=== PATIENT | female | born 1955 | race Caucasian/White ===

== ENCOUNTER 2024-09-29 18:50 | Inpatient (IN) | payer OTHER ==
[~2024-09-29] VITALS: Ht 165.1 cm; Wt 103.5 kg
--- NOTE | 2024-09-29 19:12 | ED.PDOC ---
SOB-HPI HPI Comments HPI:69F presents to the ER w/ granddaughter and w/ no prior Hx associated to the c/c of SOB w/ flulike symptoms. Pt reports on having the SOB and flulike symptoms for 1 week, actually calling EMS earlier this week but them stating that she was "fine". Today the pt's granddaughter told the pt to go and lay down and as the pt did she started to have SOB w/ palpitations, w/ the pt stating "my chest is sore". Pt notes that nobody at home is sick today. Past medical history:DM, Gout and Kidney Ranjith Past surgical history: Full Hysterectomy, Gastric Bypass and Cholecystectomy Allergies: Toradol Chief Complaint: Shortness of Breath I personally scribed for GELY BERTRAND DO ([email or web address]) on 09/29/24 at 19:12. Electronically submitted by Arron Spicer ([employer]). I personally scribed for GELY BERTRAND DO ([email or web address]) on 09/29/24 at 19:12. Electronically submitted by Arron Spicer ([email or web address]). GELY BERTRAND DO Sep 29, 2024 19:12
--- NOTE | 2024-09-29 19:17 | ED.PDOC ---
SOB-HPI HPI Comments HPI: Poor Historian. HPI:69F presents to the ER w/ granddaughter for evaluation of shortness of breath and flu-like symptoms. Pt reports on having the SOB and flulike symptoms for 1 week, actually calling EMS earlier this week but EMS stating that she was "fine". Today the pt's granddaughter told the pt to go and lay down and as the pt did she started to have SOB w/ palpitations, w/ the pt stating "my chest is sore". Pt notes that nobody at home is sick today. Past medical history:DM, Gout and Kidney Ranjith Past surgical history: Full Hysterectomy, Gastric Bypass and Cholecystectomy Allergies: Toradol REVIEW OF SYSTEMS: CONSTITUTIONAL: Denies acute: diaphoresis, chills, HEAD: Denies acute: headache, photophobia Eyes: Denies acute: Double vision, vision loss, eye pain, eye discharge. EARS: Denies acute: tinnitus, hearing loss, ear discharge, ear pain, THROAT: Denies acute: sore throat, swelling, difficulty swallowing , pain with swallowing, change in voice. NECK: Denies acute: neck pain, neck swelling, stiff neck. HEART: Denies acute : LUNGS: Denies acute: wheezing, cough, hemoptysis ABDOMEN: Denies acute: abdominal pain, Nausea, Vomiting, diarrhea, melena , hematemesis, hematochezia SKIN: Denies acute: rash, redness, lesions, itchiness. EXTREMITIES: Denies acute: calf pain, numbness, tingling, weakness, denies pain in extremity. Denies acute: Low back pain. Neuro: Denies acute: focal neurological deficit, motor or sensory focal neurological deficit, tremors, seizure like activity, confusion, dizziness, change in mental status, loss of bowel or bladder function, cauda equina like symptoms. : Denies acute: dysuria, hematuria, flank pain, increase in urinary frequency. PSYCH: Denies acute: hallucination, suicidal ideation, homicidal ideation. FEMALE: Denies acute: abnormal vaginal bleeding, foul odor, unusual discharge. PHYSICAL EXAM: General: no acute distress, awake and alert. Head: normocephalic, atraumatic. Neck: supple, trachea is midline, no swelling. Throat: Normal phonation. Eyes:, no erythema, no purulent discharge, no proptosis, no icterus. Heart: regular rate, regular rhythm, no significant murmur appreciated. Lungs: no apparent respiratory distress, Able to speak in full sentences. No wheezing, no rhonchi, no crackles. No stridors Clear to auscultation bilaterally. Abdomen: non tender to palpation, non distended, soft, no guarding, no rebound, + bowel sounds. Obese Neuro: Awake, Alert, oriented to name, self, situation, follows commands GCS=15. Speech is normal. Skin: no petechia, no purpura, no cyanosis, non-pale, not jaundice. Lower extremities: --trace bilateral - Pitting edema no deformity, no focal swelling, no calf TTP. Makes eye contact. moves all four extremities. Face: no apparent facial droop. Ambulating in the ED independently. ED COURSE: Chief Complaint: Shortness of Breath Time Seen by MD: 19:00 Reviewed notes: Nurses Notes, Allergies Information Source: Patient, Relative (GrandChild) Mode of Arrival: Ambulatory Severity: Mild Timing: Days Duration: Since onset, Days Context: Spontaneous Onset PE Risk Factors: None History of: None Prehospital treatment: None Modifying Factors: Rest; Laying flat Associated Signs and Symptoms: Cough, Chest Pain Past Medical History PAST MEDICAL HISTORY: DM, Gout Past Medical History (Other): Kidney Disease Surgical History: Cholecystectomy, Hysterectomy (FULL) Surgical History (Other): Gastric Bypass 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 Was a procedure done?: No Differential Dx Differential Diagnosis: Other (Ddx include but not limitied to gastritis, musculoskeletal pain, radiculopathy, atypical chest pain, dissection, aneurysm, ACS, unstable angina, hiatal hernia, GERD, anxiety, costochondritis, PE, pneumothroax, neoplasm, cardiac ischemia, drug abuse, anemia.) X-Ray, Labs, Meds, VS Vital Signs Date Time Temp Pulse Resp B/P (MAP) Pulse Ox O2 Delivery O2 Flow Rate FiO2 09/29/24 20:21 16 99 Room Air* 0 09/29/24 19:31 20 98 Room Air* 0 09/29/24 19:24 97.4 89 20 129/76 (93) 98 09/29/24 19:18 86 Lab Test 09/29/24 19:56 09/29/24 19:15 09/29/24 19:08 Range/Units Troponin I High Sensitivity < 3 L < 3 L </=34 ng/L Blood Gas Specimen Type Arterial Blood Gas Sample Site Right radial Blood Gas Patient Temperature 37.0 Arterial Blood Date Drawn [id number] Arterial Blood pH 7.457 H 7.350-7.450 Arterial Blood Partial Pressure CO2 29.1 L 32.0-45.0 mmHg Arterial Blood Partial Pressure O2 81.1 L 83.0-108.0 mmHg Arterial Blood HCO3 20.1 L 21.0-28.0 mmol/L Arterial Blood Oxygen Saturation 96.1 94.0-98.0 % Arterial Blood Base Excess -2.4 L -2.0-3.0 mmol/L Arterial Blood Oxyhemoglobin 94.6 94.0-98.0 % Arterial Blood Carboxyhemoglobin 1.3 0.5-1.5 % Arterial Blood Methemoglobin 0.3 0.0-1.5 % Khadar Test Modified Blood Gas Total Hemoglobin 15.00 12.0-16.0 g/dL Blood Gas Modality Room air FiO2 % 21.0 White Blood Count 7.6 4.4-10.8 10^3/uL Red Blood Count 4.48 4.0-5.20 10^6/uL Hemoglobin 14.4 12.2-16.2 g/dL Hematocrit 43.6 36.0-46.0 % Mean Corpuscular Volume 97.4 80.0-100.0 fL Mean Corpuscular Hemoglobin 32.1 H 28.0-32.0 pg Mean Corpuscular Hemoglobin Concent 32.9 32.0-36.0 g/dL Red Cell Distribution Width 14.1 11.8-14.3 % Platelet Count 169 140-450 10^3/uL Mean Platelet Volume 8.8 6.9-10.8 fL Neutrophils (%) (Auto) 67.7 37.0-80.0 % Lymphocytes (%) (Auto) 18.6 10.0-50.0 % Monocytes (%) (Auto) 8.4 0.0-12.0 % Eosinophils (%) (Auto) 4.4 0.0-7.0 % Basophils (%) (Auto) 0.9 0.0-2.0 % Neutrophils # (Auto) 5.1 1.6-8.6 10 ^3/uL Lymphocytes # (Auto) 1.4 0.4-5.4 10 ^3/uL Monocytes # (Auto) 0.6 0-1.3 10 ^3/uL Eosinophils # (Auto) 0.3 0-0.8 10 ^3/uL Basophils # (Auto) 0.1 0-0.2 10 ^3/uL Nucleated Red Blood Cells 0.0 % Sodium Level 140 136-145 mmol/L Potassium Level 4.9 3.5-5.1 mmol/L Chloride Level 107 98-107 mmol/L Carbon Dioxide Level 26 20-31 mmol/L Anion Gap 7 5-15 Blood Urea Nitrogen 32 H 9-23 mg/dL Creatinine 2.27 H 0.550-1.02 mg/dL Glomerular Filtration Rate Calc 23 >90 mL/min BUN/Creatinine Ratio 14.1 10.0-20.0 Serum Glucose 147 H 74-106 mg/dL Hemoglobin A1c Pending Lactic Acid Level 1.5 0.4-2.0 mmol/L Calcium Level 9.8 8.7-10.4 mg/dL Total Bilirubin 0.7 0.2-1.0 mg/dL Aspartate Amino Transferase (AST) 25 13-40 U/L Alanine Aminotransferase (ALT) 17 7-40 U/L Alkaline Phosphatase 109 46-116 U/L B-Type Natriuretic Peptide 113.77 0-100 pg/mL Total Protein 8.2 5.7-8.2 g/dL Albumin 4.3 3.2-4.8 g/dL Current Medications Medications (Trade) Dose Ordered Sig/Coy Route Start Time Stop Time Status Last Admin Albuterol (Ventolin Medneb) 2.5 mg ONCE ONCE NEB 09/29/24 19:45 09/29/24 19:56 DC 09/29/24 20:20 Ipratropium [place] (Atrovent Medneb) 1 mg ONCE ONCE NEB 09/29/24 19:45 09/29/24 19:56 DC 09/29/24 20:21 [facility] [id number] [place] [id number] Ph: [phone] DIAGNOSTIC IMAGING Diagnostic Imaging Report : [id number] Signed PATIENT: FENG FRANK ACCT: [id number] UNIT: [id number] : 1955 LOC: ER ROOM / BED: / AGE / SEX: 69 / F ADM STATUS: REG ER SERVICE 6229 ORDERING PHYSICIAN: GELY BERTRAND DO PROCEDURE(s): CXRP - CHEST PORTABLE REASON: sob ORDER NUMBER(s): [id number], ACCESSION NUMBER(s): [id number] EXAM: XR Chest, 1 View CLINICAL INDICATION: sob TECHNIQUE: Frontal view of the chest. COMPARISON: None FINDINGS: LUNGS AND PLEURAL SPACES: See below. HEART: Cardiomegaly with mild congestion. MEDIASTINUM: Unremarkable. Normal mediastinal contour. BONES/JOINTS: Unremarkable. No acute fracture. OTHER FINDINGS: . IMPRESSION: Cardiomegaly with mild congestion. ATED BY: KATIE REILLY MD DICTATED DATE/TIME: 09/29/241951 SIGNED BY: KATIE REILLY MD SIGNED DATE/TIME: 09/29/241951 CC: Time of 1ST Reevaluation: 19:30 Reevaluation 1ST: Unchanged Patient Education/Counseling: Diagnosis, Treatment Family Education/Counseling: Diagnosis, Treatment Comments Patient presented with the above HPI.---cardiac and respiratory--workup was initiated. patient was found with the above mentioned diagnosis. the following medications were ordered: please refer to order lists of meds and tests obtained by myself Dr. Bertrand. Patient ED course and VS have been stabilized. Patient has been reassessed in the ED and remained in a stable condition. Pertinent incidental findings were discussed with the patient and/or family. Patient/family voices understanding and is agreeable with plan. Patient has been observed in the ED adequate length of time to insure improvement/stability. Escalation of care considered: Consideration of escalation to observation or admission Patient was ADMITTED to the medicine team for further evaluation and treatment of their presentation. All the reports of any imaging studies that were ordered by myself were reviewed by myself. Departure 1 Departure Time of Disposition: 19:59 Impression: Primary Impression: Chest pain Additional Impressions: Dyspnea T wave inversion in EKG Disposition: ADMITTED INPATIENT Admit to: Tele Condition: Guarded Discharged With: Self Heart Score Heart Score: Heart Score Response (Comments) Value History Moderate Suspicious [address]-Deviation 2 Age >65 2 Risk Factors >3 or Hx ASHD 2 Troponin Normal limit 0 Total 7 Critical Care Note Critical Care Time?: No I personally scribed for GELY BERTRAND DO ([email or web address]) on 09/29/24 at 19:17. Electronically submitted by Arron Spicer ([employer]). I personally scribed for GELY BERTRAND DO ([email or web address]) on 09/29/24 at 20:53. Electronically submitted by Arron Spicer ([employer]). GELY BERTRAND DO Sep 29, 2024 19:17
--- NOTE | 2024-09-29 19:19 | ECG ---
[facility] Test Date: 2024-09-29 Test Time: 19:18:00 Pat Name: FENG FRANK Department: ER Room: 0248T Gender: F Sales Representatives: SAVANNA : 1955 Requested By: GELY BERTRAND Order Number: [id number] Reading MD: Angus Patel Measurements Intervals [place] Rate: 86 P: 9 KS: 148 QRS: 25 QRSD: 94 T: 13 QT: 363 QTc: 434 Interpretive Statements Sinus rhythm Borderline T abnormalities, anterior leads Electronically Signed On 10-03-2024 21:53:48 PST by Angus Patel Please click the below link to view image of tracing.
[2024-09-29 19:21] LABS: Base Excess -2.4 mmol/L (-2.0-3.0)
[2024-09-29 19:22] LABS: Basophils # (auto) 0.1 10 ^3/uL (0-0.2); Basophils % (auto) 0.9 % (0.0-2.0); Eosinophils # (auto) 0.3 10 ^3/uL (0-0.8); Eosinophils % (auto) 4.4 % (0.0-7.0); Hematocrit 43.6 % (36.0-46.0); Hemoglobin 14.4 g/dL (12.2-16.2); Lymphocytes # (auto) 1.4 10 ^3/uL (0.4-5.4); Lymphocytes % (auto) 18.6 % (10.0-50.0); Mean Corpuscular Hemoglobin 32.1 pg (28.0-32.0); Mean Corpuscular Hgb Conc. 32.9 g/dL (32.0-36.0); Mean Corpuscular Volume 97.4 fL (80.0-100.0); Monocytes # (auto) 0.6 10 ^3/uL (0-1.3); Monocytes % (auto) 8.4 % (0.0-12.0); Neutrophils # (auto) 5.1 10 ^3/uL (1.6-8.6); Neutrophils % (auto) 67.7 % (37.0-80.0); Platelet Count (auto) 169 10^3/uL (140-450); Red Blood Cells 4.48 10^6/uL (4.0-5.20); Red Cell Distribution Width 14.1 % (11.8-14.3); White Blood Cell 7.6 10^3/uL (4.4-10.8)
[2024-09-29 19:40] LABS: Alanine Aminotransferase 17 U/L (7-40); Alkaline Phosphatase 109 U/L (46-116); Anion Gap 7 (5-15); Aspartate Aminotransferase 25 U/L (13-40); BUN/Creatinine Ratio 14.1 (10.0-20.0); Calcium 9.8 mg/dL (8.7-10.4); Carbon Dioxide 26 mmol/L (20-31); Chloride 107 mmol/L (98-107); Potassium 4.9 mmol/L (3.5-5.1); Sodium 140 mmol/L (136-145)
[2024-09-29 19:41] LABS: Albumin 4.3 g/dL (3.2-4.8); Bilirubin, Total 0.7 mg/dL (0.2-1.0); Blood Urea Nitrogen 32 mg/dL (9-23); Glucose 147 mg/dL (74-106); Total Protein 8.2 g/dL (5.7-8.2)
--- NOTE | 2024-09-29 19:54 | DVH ---
EXAM: XR Chest, 1 View CLINICAL INDICATION: sob TECHNIQUE: Frontal view of the chest. COMPARISON: None FINDINGS: LUNGS AND PLEURAL SPACES: See below. HEART: Cardiomegaly with mild congestion. MEDIASTINUM: Unremarkable. Normal mediastinal contour. BONES/JOINTS: Unremarkable. No acute fracture. OTHER FINDINGS: . IMPRESSION: Cardiomegaly with mild congestion.
[2024-09-29] MEDS: ALBUTEROL SULF 2.5 MG/0.5ML(0.5%) NEB SOLN NEB ONE (20:20)
[2024-09-29] MEDS: IPRATROPIUM BROM 0.5 MG/2.5ML INH SOL NEB ONE (20:21)
[2024-09-29] MEDS ORDERED: ACETAMINOPHEN 325 MG TAB PO PRN (22:00)
[2024-09-29] MEDS ORDERED: HYDROcodone-ACET 5/325MG TAB PO PRN ×2 (22:45→23:30)
--- NOTE | 2024-09-29 22:51 | DVHHPRES ---
History of Present Illness Resident Creating Document: CIERRA WISE RESIDENT History of Present Illness This is a 69-year-old female with past medical history of type 2 diabetes mellitus, CKD, chronic back pain and hip pain bilaterally. The patient presented to the ED with chief complaint of shortness of breath. The patient reports that on Wednesday09/26/24, she was having shortness of breaths and feeling flu-like symptoms and called EMS which went at seen, assessed the patient and determine that the patient was fine overall, she did not require to go to the ED at that time. The patient states that today, she started having fever of 99.9 associated with shortness of breaths especially when lying down in bed with work of breathing. The patient also reported right-sided earache and headache. The patient denied cough, sputum production, chest pain or any additional symptoms. Initial labs showed an unremarkable CBC, BNP showed a BUN of 32 and a creatinine of 2.27 consistent with CKD. Troponins came back negative and BNP was slightly elevated at 113.77. Initial chest x-ray showed slightly increase in cardiac silhouette but otherwise grossly unremarkable. Upon my examination, the patient was in no acute distress on room air. Bilateral lung pantoja sounds grossly clear, there was no peripheral edema or any other signs or symptoms of congestion. We will admit the patient for further assessment and management of possible upper viral respiratory infection. Past medical history: Type 2 diabetes mellitus, chronic back pain and hip pain, CKD Home medications: Toujeo 30 units daily, gabapentin 400 mg t.i.d., potassium, Anna Musculoskeletal: Chronic low back pain Renal/: Chronic renal insuff, Chronic renal failure Endocrine: Diabetes Past Surgical History: None Smoke: No ALCOHOL: none Drugs: None Lives: with Family Domestic Violence: Neg Review of Systems Constitutional: Yes: Fever, Weakness; No: Chills, Sweats, Malaise, Other Eyes: No: Pain, Vision change, Conjunctivae inflammation, Eyelid inflammation, Other, Redness ENT: Ear pain (Right-sided ear pain); No: Ear discharge, Nose pain, Nose discharge, Nose congestion, Mouth pain, Mouth swelling, Throat pain, Throat swelling, Other Respiratory: Shortness of breath; No: Cough, Dry, SOB with excertion, Wheezing, Hemoptysis, Pleuritic Pain, Sputum, Wheezing, Other Cardiovascular: No: Chest Pain, Palpitations, Orthopnea, Paroxysmal Noc. Dyspnea, Edema, Lt Headedness, Other Gastrointestinal: No: Nausea, Vomiting, Abdominal Pain, Diarrhea, Constipation, Melena, Hematochezia, Other Genitourinary: No Dysuria, No Frequency, No Incontinence, No Hematuria, No Retention, No Other Musculoskeletal: No: other, neck pain, shoulder pain, arm pain, back pain, hand pain, leg pain, foot pain Skin: No: Rash, Lesions, Jaundice, Bruising, Other Neurological: No: Weakness, Numbness, Incoordination, Change in speech, Confusion, Seizures, Other Allergies: Coded Allergies: Ketorolac Tromethamine (Verified Allergy, Unknown, 10/02/24) Medications Current Medications Medications Dose Ordered Sig/Coy Route Start Time Stop Time Status Last Admin Dose Admin Acetaminophen 650 mg Q6HP PRN PO 09/29/24 22:00 Exam Vital Signs Vital Signs Date Time Temp Pulse Resp B/P (MAP) Pulse Ox O2 Delivery O2 Flow Rate FiO2 09/29/24 20:21 16 99 Room Air* 0 21 09/29/24 19:24 97.4 89 129/76 (93) General Appearance: Alert, Oriented X3, Cooperative, No acute distress HEENT: Atraumatic, PERRLA, EOMI, Mucous membr. moist/pink Respiratory: Clear to auscultation, Normal air movement Cardiovascular: Regular rate, Normal S1, Normal S2, No murmurs Abdominal: Normal bowel sounds, Soft, No tenderness, No hepatospenomegaly, No masses Extremities: No clubbing, No cyanosis, No edema, Normal pulses, No tenderness/s welling Skin: No rashes, No breakdown, No significant lesion Neuro: Normal gait, Normal speech, Strength at 5/5 X4 ext, Normal tone, Sensation intact, Cranial nerves 3-12 NL, Reflexes 2+ Psych/Mental Status: Mental status NL, Mood NL Labs/Xrays Labs Test 09/29/24 22:13 09/29/24 19:15 09/29/24 19:08 Range/Units Blood Gas Specimen Type Arterial Blood Gas Sample Site Right radial Blood Gas Patient Temperature 37.0 Arterial Blood Date Drawn [id number] Arterial Blood pH 7.457 H 7.350-7.450 Arterial Blood Partial Pressure CO2 29.1 L 32.0-45.0 mmHg Arterial Blood Partial Pressure O2 81.1 L 83.0-108.0 mmHg Arterial Blood HCO3 20.1 L 21.0-28.0 mmol/L Arterial Blood Oxygen Saturation 96.1 94.0-98.0 % Arterial Blood Base Excess -2.4 L -2.0-3.0 mmol/L Arterial Blood Oxyhemoglobin 94.6 94.0-98.0 % Arterial Blood Carboxyhemoglobin 1.3 0.5-1.5 % Arterial Blood Methemoglobin 0.3 0.0-1.5 % Khadar Test Modified Blood Gas Total Hemoglobin 15.00 12.0-16.0 g/dL Blood Gas Modality Room air FiO2 % 21.0 White Blood Count 7.6 4.4-10.8 10^3/uL Red Blood Count 4.48 4.0-5.20 10^6/uL Hemoglobin 14.4 12.2-16.2 g/dL Hematocrit 43.6 36.0-46.0 % Mean Corpuscular Volume 97.4 80.0-100.0 fL Mean Corpuscular Hemoglobin 32.1 H 28.0-32.0 pg Mean Corpuscular Hemoglobin Concent 32.9 32.0-36.0 g/dL Red Cell Distribution Width 14.1 11.8-14.3 % Platelet Count 169 140-450 10^3/uL Mean Platelet Volume 8.8 6.9-10.8 fL Neutrophils (%) (Auto) 67.7 37.0-80.0 % Lymphocytes (%) (Auto) 18.6 10.0-50.0 % Monocytes (%) (Auto) 8.4 0.0-12.0 % Eosinophils (%) (Auto) 4.4 0.0-7.0 % Basophils (%) (Auto) 0.9 0.0-2.0 % Neutrophils # (Auto) 5.1 1.6-8.6 10 ^3/uL Lymphocytes # (Auto) 1.4 0.4-5.4 10 ^3/uL Monocytes # (Auto) 0.6 0-1.3 10 ^3/uL Eosinophils # (Auto) 0.3 0-0.8 10 ^3/uL Basophils # (Auto) 0.1 0-0.2 10 ^3/uL Nucleated Red Blood Cells 0.0 % Sodium Level 140 136-145 mmol/L Potassium Level 4.9 3.5-5.1 mmol/L Chloride Level 107 98-107 mmol/L Carbon Dioxide Level 26 20-31 mmol/L Anion Gap 7 5-15 Blood Urea Nitrogen 32 H 9-23 mg/dL Creatinine 2.27 H 0.550-1.02 mg/dL Glomerular Filtration Rate Calc 23 >90 mL/min BUN/Creatinine Ratio 14.1 10.0-20.0 Serum Glucose 147 H 74-106 mg/dL Hemoglobin A1c 5.9 H <5.7 % A1C Lactic Acid Level 1.5 0.4-2.0 mmol/L Calcium Level 9.8 8.7-10.4 mg/dL Total Bilirubin 0.7 0.2-1.0 mg/dL Aspartate Amino Transferase (AST) 25 13-40 U/L Alanine Aminotransferase (ALT) 17 7-40 U/L Alkaline Phosphatase 109 46-116 U/L B-Type Natriuretic Peptide 113.77 0-100 pg/mL Total Protein 8.2 5.7-8.2 g/dL Albumin 4.3 3.2-4.8 g/dL Assessment/Plan Assessment/Plan Assessment/plan Acute respiratory distress likely due to upper respiratory viral infection -reports shortness of breath when lying down on bed associated with episode of fever weakness. -currently on room air -ABG showed pH of 7.45, pCO2 29.1, PaO2 81.2, HC03 20.1 -initial chest x-ray showed slight enlarged cardiac silhouette but no solid consolidations -start IV azithromycin -Start IV fluids 75cc/hr -BNP was slightly elevated 113.77 -Trops negative -Monitor O2 sats AILYN on CKD stage IV likely due to vasomotor nephropathy -BUN 32, creatinine 2.27 -IV fluids at 75 cc/hour -monitor kidney function Type 2 Diabetes Mellitus -Hemoglobin A1c back at 5.9% consistent with prediabetes and very well controlled -mild sliding scale insulin -monitor blood glucose. Chronic back and bilateral hip pain -gabapentin 400 mg t.i.d. -Anna p.r.n. Goals of care discussed with the patient for > 30min, FULL CODE Plan discussed with Dr. Heart Plan discussed with: Patient My Orders Orders - CIERRA WISE RESIDENT Procedure Category Date Status Time Admit ADMIT 09/29/24 Transmitted 21:51 Code Status CODE 09/29/24 Transmitted 21:51 Vital Signs WENDI 09/29/24 In Process 21:51 Review Orders With WENDI 09/29/24 In Process Adm. 21:51 Encourage Activity As WENDI 09/29/24 In Process Tolerate 21:51 Regular Diet DIET 09/30/24 Transmitted Breakfast Acetaminophen Tablet PHA 09/29/24 In Process (Tylenol Tablet) 22:00 Notify Of Changes WENDI 09/29/24 In Process From Base 21:51 Advance Directive WENDI 09/29/24 In Process 21:51 Urinalysis LAB 09/29/24 Logged 21:51 Complete Blood Count LAB 09/30/24 Verified 04:00 Lipid Panel LAB 09/29/24 In Process 21:51 Patient Condition ORDERS 09/29/24 Transmitted 21:51 Allergies WENDI 09/29/24 In Process 21:51 Drug Screen LAB 09/29/24 Logged 21:51 Rapid Influenza A&B LAB 09/29/24 Logged 22:00 Date of Service: Sep 29, 2024 Billing Provider: [facility] MD Common Visit Codes: 02985-BCGLXDJ INP/OBS CARE (HIGH) Secondary Visit Codes: 74779-HFYXUGDM CARE PLAN 30 MINUTES CIERRA WISE RESIDENT Sep 29, 2024 22:51 [facility] MD Oct 02, 2024 10:10
[2024-09-29 23:35] LABS: LDL Cholesterol 92 mg/dL (< 100)
[2024-09-29 23:36] LABS: Cholesterol 158 mg/dL (< 200)
[2024-09-29 23:41] LABS: HDL Cholesterol 33 mg/dL (40-59); Triglycerides 176 mg/dL (< 150)
[2024-09-30] VITALS (7 sets, daily range): BP systolic 120–135; BP diastolic 43–70; PULSE 62–78; RESP 16–17; TEMP 97.4–98.2; O2SAT 90–96
[2024-09-30] MEDS: ASPirin-EC 325mg tab PO ONE (00:17)
[2024-09-30] MEDS: AZITHROMYCIN 500MG/ 250ML 250 ML IV ONE (00:18)
[2024-09-30] MEDS: methylPREDNISolone SOD SUCC 125 MG/2 ML VL IV ONE (00:18)
[2024-09-30] MEDS: SODIUM CHLORIDE 0.9% 1,000 ML IV ONE (00:40)
[2024-09-30] MEDS: GABAPENTIN 400 MG CAP PO ONE (01:05)
[2024-09-30 01:27] LABS: COVID19 ANTIGEN SOFIA FIA NEGATIVE (NEGATIVE); Rapid Influenza A Negative (Negative); Rapid Influenza B Negative (Negative)
[2024-09-30 05:07] LABS: Urine Bacteria FEW /hpf (None Seen); Urine Blood 3+ /uL (Negative); Urine Clarity Turbid (Clear); Urine Color Yellow (Yellow); Urine Protein, UAD 1+ (Negative); Urine Specific Gravity 1.019 (1.001-1.035); Urine Squamous Epithelial Cell FEW /hpf (<5); Urine Urobilinogen 4 mg/dL (Negative); Urine WBC 265 /HPF (0-5); Urine WBC Clumps PRESENT /hpf (None Seen); Urine pH 5.5 (5.0-9.0)
[2024-09-30 05:28] LABS: Barbiturate Scree,Urine Neg (NEGATIVE); Opiate Scree,Urine Pos (NEGATIVE); Phencyclidine Screen, Urine Neg (NEGATIVE)
[2024-09-30 05:29] LABS: Amphetamine Screen, Urine Neg (NEGATIVE); Benzodiazephine Screen, Urine Neg (NEGATIVE); Cannabinoid Screen, Urine Neg (NEGATIVE); Cocaine Screen, Urine Neg (NEGATIVE)
[2024-09-30] MEDS: GABAPENTIN 400 MG CAP PO SCH (06:12)
[2024-09-30 06:15] LABS: Basophils # (auto) 0 10 ^3/uL (0-0.2); Basophils % (auto) 0.3 % (0.0-2.0); Eosinophils # (auto) 0 10 ^3/uL (0-0.8); Eosinophils % (auto) 0.4 % (0.0-7.0); Hematocrit 43.1 % (36.0-46.0); Hemoglobin 14.1 g/dL (12.2-16.2); Lymphocytes # (auto) 0.5 10 ^3/uL (0.4-5.4); Lymphocytes % (auto) 7.3 % (10.0-50.0); Mean Corpuscular Hemoglobin 31.8 pg (28.0-32.0); Mean Corpuscular Hgb Conc. 32.7 g/dL (32.0-36.0); Mean Corpuscular Volume 97.1 fL (80.0-100.0); Monocytes # (auto) 0.1 10 ^3/uL (0-1.3); Monocytes % (auto) 1.6 % (0.0-12.0); Neutrophils # (auto) 6.4 10 ^3/uL (1.6-8.6); Neutrophils % (auto) 90.4 % (37.0-80.0); Platelet Count (auto) 167 10^3/uL (140-450); Red Blood Cells 4.44 10^6/uL (4.0-5.20); Red Cell Distribution Width 14.2 % (11.8-14.3)
--- NOTE | 2024-09-30 11:58 | DVHSR ---
APPROVED REPORT EXAM: Two-dimensional and M-mode echocardiogram with Doppler and color Doppler. Blood Pressure: 120/61 mmHg INDICATION R/O CHF RISK FACTORS Obesity: Height: 5'5, Weight: 228 DIMENSIONS LVDd4.5 (3.8-5.7cm)LA (2D)3.9 (1.9-4.0cm)Aortic Root3.2 (2.0-3.7cm) LVDs3.1 (2.5-4.0cm)LA (MM) (1.9-4.0cm)Aortic Cusp Exc1.2 (1.5-2.0cm) EF (%) 53.0 (55-70%)Rt. Atrium3.4 (1.9-4.0cm)Asc. Aorta3.0 cm IVSd1.3 (0.7-1.1cm)RV (D)3.5 (1.8-2.4cm) PWd0.8 (0.7-1.1cm) Mitral Valve MitralMitral Stenosis E wave1.41m/sMV Mean GR.3mmHg A wave1.03m/sMV Peak GR.125mmHg E/A ratio1.42D MVAcm2 DECEL [id number] 1/2 [place] Aortic Valve Aortic ValveAortic Stenosis V10.95m/[place] Mean GR.5mmHg V21.55m/[place] Peak GR.10mmHg LVOT Diameter2.2 (1.8-2.4cm)Doppler AVA2.33cm2 Pulmonic Valve V20.85m/s Tricuspid Valve TR Velocity2.53m/s [id number] Other Information Quality : Technically LimitedRhythm : Technically limited study due to patient position. Conclusion lvef 50-55% by visual estimate LV enlarged normal rv function left atrium marked enlargement severe mitral regurg small to mdoerate pericardial effusion noted, no HD compromise
[2024-09-30] MEDS ORDERED: HYDR-4798 PO (15:06)
[2024-09-30] MEDS ORDERED: GABA-339 PO (15:06)
[2024-09-30] MEDS ORDERED: GABA-1250 PO (15:06)
[2024-09-30] MEDS ORDERED: ALLO100T PO (15:10)
[2024-09-30] MEDS: ALLOPURINOL 100 MG TAB PO ONE (18:48)
[2024-09-30] MEDS: cefTRIAXone 1GM/50ML D5W 50 ML IV ONE (18:49)
--- NOTE | 2024-09-30 20:06 | DVHPN2 ---
Subjective had dysuria few days back/recovering from urti//came to er for palpitations Changes from previous H/P or p: No Changes Eyes: No Pain, No Vision change, No Conjunctivae inflammation, No Eyelid inflammation, No Other, No Redness ENT: Ear pain (Right-sided ear pain); No Ear discharge, No Nose pain, No Nose discharge, No Nose congestion, No Mouth pain, No Mouth swelling, No Throat pain, No Throat swelling, No Other Cardiovascular: No Chest Pain, No Palpitations, No Orthopnea, No Paroxysmal Noc. Dyspnea, No Edema, No Lt Headedness, No Other Respiratory: No Cough, No Dry; Shortness of breath; No SOB with excertion, No Wheezing, No Hemoptysis, No Pleuritic Pain, No Sputum, No Other Gastrointestinal: No Nausea, No Vomiting, No Abdominal Pain, No Diarrhea, No Constipation, No Melena, No Hematochezia, No Other Genitourinary: No Dysuria, No Frequency, No Incontinence, No Hematuria, No Retention, No Other Musculoskeletal: No other, No neck pain, No shoulder pain, No arm pain, No back pain, No hand pain, No leg pain, No foot pain Skin: No Rash, No Lesions, No Jaundice, No Bruising, No Other Objective Vitals Vital Signs Date Time Temp Pulse Resp B/P (MAP) Pulse Ox O2 Delivery O2 Flow Rate FiO2 09/30/24 16:45 97.4 72 17 135/43 (73) 94 97.4 09/30/24 11:42 Room Air* 0 21 Intake/Output Intake and Output 09/30/24 07:00 Intake Total 250 ml Balance 250 ml IV Total 250 ml General Appearance: Alert, Oriented X3, Cooperative, No acute distress Lungs: Clear to auscultation Cardiovascular: Regular rate, Normal S1, Normal S2 Abdomen: Normal bowel sounds, Soft, No tenderness, No hepatospenomegaly Musculoskeletal: Normal sensory function, Normal motor function Neuro: Normal gait, Normal speech, Strength at 5/5 X4 ext, Normal tone, S ensation intact, Cranial nerves 3-12 NL, Reflexes 2+ Psych/Mental Status: Mental status NL, Mood NL Medications Current Medications Medications Dose Ordered Sig/Coy Route Start Time Stop Time Status Last Admin Dose Admin Acetaminophen 650 mg Q6HP PRN PO 09/29/24 22:00 Acetaminophen/ Hydrocodone Bitart 1 tab PRN PRN PO 09/29/24 23:30 Cancel Ceftriaxone Sodium 50 ml @ 100 mls/hr Q24H IV 10/01/24 21:00 Acetaminophen/ Hydrocodone Bitart 1 tab Q8HP PRN PO 09/30/24 18:15 Gabapentin 400 mg BID PO 10/01/24 10:00 UNV Gabapentin 600 mg HS PO 09/30/24 22:00 UNV Allopurinol 200 mg DAILY PO 10/01/24 10:00 Docusate Sodium 100 mg BID PO 09/30/24 22:00 Laboratory Results Laboratory Tests 09/29/24 19:08 09/30/24 05:14 Lipid panel Test 09/29/24 22:13 Cholesterol Level 158 mg/dL (< 200) HDL Cholesterol 33 mg/dL (40-59) L Triglycerides Level 176 mg/dL (< 150) H Urinalysis Test 09/30/24 02:55 Urine Color Yellow (Yellow) Urine Clarity Turbid (Clear) H Urine pH 5.5 (5.0-9.0) Urine Specific [place] 1.019 (1.001-1.035) Urine Protein 1+ (Negative) H Urine Ketones Negative (Negative) Urine Blood 3+ /uL (Negative) H Urine Nitrite Negative (Negative) Urine Bilirubin Negative (Negative) Urine Urobilinogen 4 mg/dL (Negative) H Urine Leukocyte Esterase 3+ /uL (Negative) Urine RBC 32 /hpf (0 - 4) Urine WBC Clumps Present /hpf (None Seen) Urine Microscopic WBC 265 /HPF (0-5) H Urine Squamous Epithelial Cells Few /hpf (<5) Urine Bacteria Few /hpf (None Seen) H Urine Glucose 2+ mg/dL (Normal) H Assessment/Plan Assessment/Plan palpitations- monitor for arrythmias/check tsh/lytes-better now ? uti- culture/treat mitral regurgitation- educated/monitor periodically degerative disc disease ckd4- f/by h/o gout Plan discussed with: Patient My Orders Orders - GABBY COOPER MD Procedure Category Date Status Time Urine Bacterial CORBY 09/30/24 In Process Culture 18:03 Ceftriaxone 1gm/50ml PHA 10/01/24 In Process D5w (Rocephin) 21:00 Hydrocodone-Acet PHA 09/30/24 In Process 10/325mg Tab ([place] 18:15 Gabapentin Capsule PHA 09/30/24 In Process (Neurontin Capsule) 22:00 Gabapentin Capsule PHA 09/30/24 Pending (Neurontin Capsule) 22:00 Allopurinol Tablet PHA 10/01/24 In Process (Zyloprim Tablet) 10:00 Transfer Orders XFER 09/30/24 Transmitted 18:19 Docusate Sodium PHA 09/30/24 In Process Capsule (Colace 22:00 Gabapentin Capsule PHA 10/01/24 Pending (Neurontin Capsule) 10:00 Date of Service: Sep 30, 2024 Billing Provider: GABBY COOPER MD Common Visit Codes: [id number] INP/OBS CARE(MOD) GABBY COOPER MD Sep 30, 2024 20:06
[2024-09-30] MEDS: DOCUSATE SOD 100 MG CAP PO SCH (21:41)
[2024-09-30] MEDS: HYDROcodone-ACET 10/325MG TAB PO PRN (21:42)
[2024-09-30] MEDS: GABAPENTIN 300 MG CAP PO ONE (21:42)
[2024-10-01] MEDS: GABAPENTIN 300 MG CAP PO SCH
[2024-10-01 01:00] VITALS: BP 101/48; PULSE 63; RESP 16; TEMP 97.5; O2SAT 92
[2024-10-01 05:00] VITALS: BP 134/70; PULSE 58; RESP 17; TEMP 97.5; O2SAT 94
[2024-10-01 07:09] LABS: Calcium 9.5 mg/dL (8.7-10.4)
[2024-10-01 07:15] LABS: Magnesium 2.4 mg/dL (1.6-2.6)
[2024-10-01 07:52] LABS: Chloride 110 mmol/L (98-107); Potassium 4.2 mmol/L (3.5-5.1); Sodium 143 mmol/L (136-145)
[2024-10-01 07:53] LABS: Anion Gap 11 (5-15); Carbon Dioxide 22 mmol/L (20-31); Glucose 151 mg/dL (74-106)
[2024-10-01 07:55] LABS: BUN/Creatinine Ratio 21.8 (10.0-20.0); Blood Urea Nitrogen 44 mg/dL (9-23)
[2024-10-01 09:00] VITALS: BP 129/63; PULSE 59; RESP 16; TEMP 98; O2SAT 96
[2024-10-01] MEDS: ALLOPURINOL 100 MG TAB PO SCH (10:01)
[2024-10-01] MEDS ORDERED: ENOXAPARIN SOD 60 MG/0.6 ML SYRINGE SC ONE (11:30)
--- NOTE | 2024-10-01 11:48 | DVHPN2 ---
Subjective had dysuria few days back/recovering from urti//came to er for palpitations no palpitaions now ambulated hallway- denies any chest pain/palpitations Changes from previous H/P or p: No Changes Eyes: No Pain, No Vision change, No Conjunctivae inflammation, No Eyelid inflammation, No Other, No Redness ENT: Ear pain (Right-sided ear pain); No Ear discharge, No Nose pain, No Nose discharge, No Nose congestion, No Mouth pain, No Mouth swelling, No Throat pain, No Throat swelling, No Other Cardiovascular: No Chest Pain, No Palpitations, No Orthopnea, No Paroxysmal Noc. Dyspnea, No Edema, No Lt Headedness, No Other Respiratory: No Cough, No Dry; Shortness of breath; No SOB with excertion, No Wheezing, No Hemoptysis, No Pleuritic Pain, No Sputum, No Other Gastrointestinal: No Nausea, No Vomiting, No Abdominal Pain, No Diarrhea, No Constipation, No Melena, No Hematochezia, No Other Genitourinary: No Dysuria, No Frequency, No Incontinence, No Hematuria, No Retention, No Other Musculoskeletal: No other, No neck pain, No shoulder pain, No arm pain, No back pain, No hand pain, No leg pain, No foot pain Skin: No Rash, No Lesions, No Jaundice, No Bruising, No Other Objective Vitals Vital Signs Date Time Temp Pulse Resp B/P (MAP) Pulse Ox O2 Delivery O2 Flow Rate FiO2 10/01/24 09:00 98.0 59 16 129/63 (85) 96 98.0 10/01/24 08:00 Room Air* 0 21 Intake/Output Intake and Output 10/01/24 07:00 Intake Total 2975 ml Balance 2975 ml Intake Oral 2150 ml IV Total 825 ml # Voids 25 General Appearance: Alert, Oriented X3, Cooperative, No acute distress Lungs: Clear to auscultation Cardiovascular: Regular rate, Normal S1, Normal S2 Abdomen: Normal bowel sounds, Soft, No tenderness, No hepatospenomegaly Musculoskeletal: Normal sensory function, Normal motor function Neuro: Normal gait, Normal speech, Strength at 5/5 X4 ext, Normal tone, S ensation intact, Cranial nerves 3-12 NL, Reflexes 2+ Psych/Mental Status: Mental status NL, Mood NL Medications Current Medications Medications Dose Ordered Sig/Coy Route Start Time Stop Time Status Last Admin Dose Admin Acetaminophen 650 mg Q6HP PRN PO 09/29/24 22:00 Acetaminophen/ Hydrocodone Bitart 1 tab PRN PRN PO 09/29/24 23:30 Cancel Ceftriaxone Sodium 50 ml @ 100 mls/hr Q24H IV 10/01/24 21:00 Acetaminophen/ Hydrocodone Bitart 1 tab Q8HP PRN PO 09/30/24 18:15 10/01/24 10:02 1 TAB Gabapentin 400 mg TID PO 10/01/24 14:00 Gabapentin 600 mg DAILY@0000 PO 10/01/24 00:00 Allopurinol 200 mg DAILY PO 10/01/24 10:00 10/01/24 10:01 200 MG Docusate Sodium 100 mg BID PO 09/30/24 22:00 10/01/24 10:01 100 MG Laboratory Results Laboratory Tests 09/30/24 05:14 10/01/24 05:46 Chemistry Test 10/01/24 05:46 Calcium Level 9.5 mg/dL (8.7-10.4) Magnesium Level 2.4 mg/dL (1.6-2.6) Coagulation Test 10/01/24 05:46 D-Dimer, Quantitative 2.04 mg/L FEU (0.0-0.49) H HgA1c, TSH Test 10/01/24 05:46 Thyroid Stimulating Hormone (TSH) 0.52 uIU/mL (0.55-4.78) L Urinalysis Test 09/30/24 02:55 Urine Color Yellow (Yellow) Urine Clarity Turbid (Clear) H Urine pH 5.5 (5.0-9.0) Urine Specific [place] 1.019 (1.001-1.035) Urine Protein 1+ (Negative) H Urine Ketones Negative (Negative) Urine Blood 3+ /uL (Negative) H Urine Nitrite Negative (Negative) Urine Bilirubin Negative (Negative) Urine Urobilinogen 4 mg/dL (Negative) H Urine Leukocyte Esterase 3+ /uL (Negative) Urine RBC 32 /hpf (0 - 4) Urine WBC Clumps Present /hpf (None Seen) Urine Microscopic WBC 265 /HPF (0-5) H Urine Squamous Epithelial Cells Few /hpf (<5) Urine Bacteria Few /hpf (None Seen) H Urine Glucose 2+ mg/dL (Normal) H Microbiology Microbiology Date/Time Source Procedure Growth Status 09/30/24 02:55 Voided Urine Urine Culture - Preliminary Resulted Labs and/or images reviewed: Labs reviewed by me, Image(s) reviewed by me Assessment/Plan Assessment/Plan palpitations- monitored for arrythmias none/check tsh/lytes-better now//d- dimer at 2.0/has gram negative uti /recent urti- ambulated hallway no chest pain or dyapnea- cancel vq scan/lovenox--clinically no signs of pe gram negative uti- culture/treat mitral regurgitation- educated/monitor periodically/also echo shows moderate pericardial effusion- get clearance from cardio before dc also cardiology to comment on if/when next echo needs to be done degenerative disc disease-has appt with pain management and insists on being dc in am ckd4- f/by h/o gout Plan discussed with: Patient, Other My Orders Orders - GABBY COOPER MD Procedure Category Date Status Time Urine Bacterial CORBY 09/30/24 In Process Culture 18:03 Ceftriaxone 1gm/50ml PHA 10/01/24 In Process D5w (Rocephin) 21:00 Hydrocodone-Acet PHA 09/30/24 In Process 10/325mg Tab ([place] 18:15 Allopurinol Tablet PHA 10/01/24 In Process (Zyloprim Tablet) 10:00 Transfer Orders XFER 09/30/24 Transmitted 18:19 Docusate Sodium PHA 09/30/24 In Process Capsule (Colace 22:00 Gabapentin Capsule PHA 10/01/24 In Process (Neurontin Capsule) 14:00 Free T4 (Free LAB 10/01/24 In Process Thyroxine) 04:00 Gabapentin Capsule PHA 10/01/24 In Process (Neurontin Capsule) 00:00 Enoxaparin Sodium PHA 10/01/24 Verified (Lovenox) 11:30 Enoxaparin Sodium PHA 10/02/24 Verified (Lovenox) 10:00 Nm Lung Ventilation NM 10/01/24 Verified Only 11:22 Date of Service: Oct 01, 2024 Billing Provider: GABBY COOPER MD Common Visit Codes: [id number] INP/OBS CARE(HIGH) GABBY COOPER MD Oct 01, 2024 11:48
[2024-10-01 13:00] VITALS: BP 141/70; PULSE 63; RESP 17; TEMP 97.3; O2SAT 94
--- NOTE | 2024-10-01 13:50 | DVHINCON2 ---
Date Seen: Oct 01, 2024 Referring Physician Charmaine Reason for Consultation Pericardial Effusion History of Present Illness 69-year-old female with PMH for diabetes, CKD, neuropathy, and kidney stones presents to the hospital with shortness of breath and flu-like symptoms. Patient states that she presented to urgent care and was referred to the hospital for further testing. Upon evaluation in the ER patient noted to have creatinine 2.27, troponin trending negative, CXR showing cardiomegaly with mild congestion. Denies any previous cardiac history, workup, denies chest pain. Patient does note that shortness of breath was worsening when she laid flat and also started to feel some palpitations. EKG reviewed and shows sinus rhythm at 86 beats per minute anterior T-wave abnormality. Echo done showed normal EF though also showed severe MR and moderate pericardial effusion. Cardiology consulted. Past Medical History Diabetes Kidney stone CKD Past Surgical History Denies previous cardiac surgeries Family History: Diabetes mellitus G8 MOTHER G8 FATHER Family History Denies pertinent family cardiac history Social History Denies alcohol, tobacco, or illicit drug use Allergies: Coded Allergies: Ketorolac Tromethamine (Verified Allergy, Unknown, 09/29/24) Home Meds Reported Medications Allopurinol (Allopurinol) 100 Mg Tab, 200 MG PO DAILY, TAB 09/30/24 Gabapentin (Gabapentin) 600 Mg Tab, 600 MG PO HS for 30 Days, MG 09/30/24 Gabapentin (Gabapentin) 300 Mg Cap, 400 MG PO BID for 30 Days, MG 09/30/24 Hydrocodone-Acetaminophen (Hydrocodone Bitartrate/AC 10-325 mg) 1 Tab Tab, 1 TAB PO TID, TAB 09/30/24 Current Medications Current Medications Medications (Trade) Dose Ordered Sig/Coy Route PRN Reason Start Time Stop Time Status Last Admin Ceftriaxone Sodium 50 ml @ 100 mls/hr Q24H IV 10/01/24 21:00 Acetaminophen/ Hydrocodone Bitart ([place] 10/325MG Tab) 1 tab Q8HP PRN PO MODERATE PAIN (4-6 PAIN SCALE) 09/30/24 18:15 10/01/24 10:02 Gabapentin (Neurontin Capsule) 400 mg TID PO 10/01/24 14:00 Gabapentin (Neurontin Capsule) 600 mg DAILY@0000 PO 10/01/24 00:00 Allopurinol (Zyloprim Tablet) 200 mg DAILY PO 10/01/24 10:00 10/01/24 10:01 Docusate Sodium (Colace Capsule) 100 mg BID PO 09/30/24 22:00 10/01/24 10:01 Enoxaparin Sodium (Lovenox) 60 mg DAILY SC 10/02/24 10:00 10/01/24 11:44 DC Review of Systems Constitutional: No: Fever, Chills, Sweats, Weakness, Malaise, Other Eyes: No: Pain, Vision change, Conjunctivae inflammation, Eyelid inflammation, Other, Redness ENT: No: Ear pain, Ear discharge, Nose pain, Nose discharge, Nose congestion, Mouth pain, Mouth swelling, Throat pain, Throat swelling, Other Respiratory: No: Cough, Dry, , SOB with exertion, Wheezing, Hemoptysis, Pleuritic Pain, Sputum, Wheezing, Other positive: Shortness of breath Cardiovascular: ; No: Chest Pain , Orthopnea, Paroxysmal Noc. Dyspnea, Edema, Lt Headedness, Other positive: Palpitations Gastrointestinal: No: Nausea, Vomiting, Abdominal Pain, Diarrhea, Constipation, Melena, Hematochezia, Other Genitourinary: No Dysuria, No Frequency, No Incontinence, No Hematuria, No Retention, No Other Musculoskeletal: neck pain; No: other, shoulder pain, arm pain, back pain, hand pain, leg pain, foot pain Skin: No: Rash, Lesions, Jaundice, Bruising, Other Neurological: Other (Dizziness, headache.); No: Weakness, Numbness, Incoordination, Change in speech, Confusion, Seizures Vital Signs Vital Signs Date Time Temp Pulse Resp B/P (MAP) Pulse Ox O2 Delivery O2 Flow Rate FiO2 10/01/24 13:00 97.3 63 17 141/70 (93) 94 97.3 10/01/24 08:00 Room Air* 0 21 Physical Exam General appearance: Patient is well-developed, well-nourished, in no acute distress. HEENT: Exam shows: Normocephalic, atraumatic, PERRLA, EOMI Neck: Supple, no bruits Chest: Equal chest excursion bilaterally. Breath sounds normal-no rales or wheezes. Heart: Rhythm: Regular rate; murmur Abdomen: Exam shows: Soft, nontender, nondistended Musculoskeletal: No clubbing, no cyanosis, no lower extremity edema Dermatology: Skin warm, moist. Neurological: Exam shows: Alert and oriented x4, normal speech Available prior records, labs, EKG, rhythm strips reviewed and interpreted Labs/Diagnostic Data Labs Test 10/01/24 05:46 09/30/24 05:14 09/30/24 02:55 09/30/24 00:53 Range/Units D-Dimer, Quantitative 2.04 H 0.0-0.49 mg/L FEU Sodium Level 143 136-145 mmol/L Potassium Level 4.2 3.5-5.1 mmol/L Chloride Level 110 H 98-107 mmol/L Carbon Dioxide Level 22 20-31 mmol/L Anion Gap 11 5-15 Blood Urea Nitrogen 44 #H 9-23 mg/dL Creatinine 2.02 H 0.550-1.02 mg/dL Glomerular Filtration Rate Calc 27 >90 mL/min BUN/Creatinine Ratio 21.8 H 10.0-20.0 Serum Glucose 151 H 74-106 mg/dL Calcium Level 9.5 8.7-10.4 mg/dL Magnesium Level 2.4 1.6-2.6 mg/dL Thyroid Stimulating Hormone (TSH) 0.52 L 0.55-4.78 uIU/mL White Blood Count 7.0 4.4-10.8 10^3/uL Red Blood Count 4.44 4.0-5.20 10^6/uL Hemoglobin 14.1 12.2-16.2 g/dL Hematocrit 43.1 36.0-46.0 % Mean Corpuscular Volume 97.1 80.0-100.0 fL Mean Corpuscular Hemoglobin 31.8 28.0-32.0 pg Mean Corpuscular Hemoglobin Concent 32.7 32.0-36.0 g/dL Red Cell Distribution Width 14.2 11.8-14.3 % Platelet Count 167 140-450 10^3/uL Mean Platelet Volume 9.1 6.9-10.8 fL Neutrophils (%) (Auto) 90.4 H 37.0-80.0 % Lymphocytes (%) (Auto) 7.3 L 10.0-50.0 % Monocytes (%) (Auto) 1.6 0.0-12.0 % Eosinophils (%) (Auto) 0.4 0.0-7.0 % Basophils (%) (Auto) 0.3 0.0-2.0 % Neutrophils # (Auto) 6.4 1.6-8.6 10 ^3/uL Lymphocytes # (Auto) 0.5 0.4-5.4 10 ^3/uL Monocytes # (Auto) 0.1 0-1.3 10 ^3/uL Eosinophils # (Auto) 0 0-0.8 10 ^3/uL Basophils # (Auto) 0 0-0.2 10 ^3/uL Nucleated Red Blood Cells 0.0 % Urine Color Yellow Yellow Urine Clarity Turbid H Clear Urine pH 5.5 5.0-9.0 Urine Specific [place] 1.019 1.001-1.035 Urine Protein 1+ H Negative Urine Ketones Negative Negative Urine Blood 3+ H Negative /uL Urine Nitrite Negative Negative Urine Bilirubin Negative Negative Urine Urobilinogen 4 H Negative mg/dL Urine Leukocyte Esterase 3+ Negative /uL Urine RBC 32 0 - 4 /hpf Urine WBC Clumps Present None Seen /hpf Urine Microscopic WBC 265 H 0-5 /HPF Urine Squamous Epithelial Cells Few <5 /hpf Urine Bacteria Few H None Seen /hpf Urine Glucose 2+ H Normal mg/dL Urine Opiates Screen Pos NEGATIVE Urine Fentanyl Screen Neg NEGATIVE Urine Barbiturates Screen Neg NEGATIVE Urine Phencyclidine Screen Neg NEGATIVE Urine Amphetamines Screen Neg NEGATIVE Urine Benzodiazepines Screen Neg NEGATIVE Urine Cocaine Screen Neg NEGATIVE Urine Cannabinoids Screen Neg NEGATIVE Influenza Type A Antigen Negative Negative Influenza Type B Antigen Negative Negative SARS-CoV-2 Antigen (Rapid) Negative NEGATIVE Test 09/29/24 22:13 09/29/24 19:15 09/29/24 19:08 Range/Units Troponin I High Sensitivity < 3 L </=34 ng/L Triglycerides Level 176 H < 150 mg/dL Cholesterol Level 158 < 200 mg/dL LDL Cholesterol 92 < 100 mg/dL HDL Cholesterol 33 L 40-59 mg/dL Blood Gas Specimen Type Arterial Blood Gas Sample Site Right radial Blood Gas Patient Temperature 37.0 Arterial Blood Date Drawn [id number] Arterial Blood pH 7.457 H 7.350-7.450 Arterial Blood Partial Pressure CO2 29.1 L 32.0-45.0 mmHg Arterial Blood Partial Pressure O2 81.1 L 83.0-108.0 mmHg Arterial Blood HCO3 20.1 L 21.0-28.0 mmol/L Arterial Blood Oxygen Saturation 96.1 94.0-98.0 % Arterial Blood Base Excess -2.4 L -2.0-3.0 mmol/L Arterial Blood Oxyhemoglobin 94.6 94.0-98.0 % Arterial Blood Carboxyhemoglobin 1.3 0.5-1.5 % Arterial Blood Methemoglobin 0.3 0.0-1.5 % Khadar Test Modified Blood Gas Total Hemoglobin 15.00 12.0-16.0 g/dL Blood Gas Modality Room air FiO2 % 21.0 Hemoglobin A1c 5.9 H <5.7 % A1C Lactic Acid Level 1.5 0.4-2.0 mmol/L Total Bilirubin 0.7 0.2-1.0 mg/dL Aspartate Amino Transferase (AST) 25 13-40 U/L Alanine Aminotransferase (ALT) 17 7-40 U/L Alkaline Phosphatase 109 46-116 U/L B-Type Natriuretic Peptide 113.77 0-100 pg/mL Total Protein 8.2 5.7-8.2 g/dL Albumin 4.3 3.2-4.8 g/dL Microbiology Date/Time Source Procedure Growth Status 09/30/24 02:55 Voided Urine Urine Culture - Preliminary Resulted Assessment * Palpitations - Continue telemetry monitoring. TSH low, follow up FT4 * Paroxysmal Atrial Tachycardia - one episode/short run noted. Outpatient event monitoring. We will hold off on AV clemencia blockers due to lower heart rate. * Pericardial Effsuion - No evidence of tamponade. Follow up 3-4 weeks for repeat echo outpatient. * Flu like symptoms, Viral infection? - on IV abx, management epr priamry team * CKD - unknown baseline. continue monitoring. follow up nephrology * Severe MR - breathing stable. outpatient follow up. * Elevated BNP - CXR showing mild pulmonary congestion. Breathing stable on robert m air. Does not seem overloaded. Continue monitoring fluid volume status. Case Discussed with Dr Khoury. There is no further cardiac work-up indicated at this time. Thank you for allowing us to participate in this patient's care. Stable for discharge from cardiology standpoint. Patient to follow up outpatient for repeat echo 3-4 weeks. Will sign off. Critical care, time spent: 38 minutes This medical document was created using an electronic medical record system with voice recognition software and computerized dictation system. Although this document has been carefully reviewed, there might still be some phonetic and ty pographical errors. Occasional wrong-word or ``sound-alike substitutions may have occurred due to the inherent limitations of voice recognition software. These areas are purely typographical due to imperfections of the software programs and do not reflect any compromise in the patient's medical care. Please read the chart carefully and recognize, using context, where these sub stitutions have occurred. Thank you for allowing me to participate in the management of this patient. The treatment plan was discussed with and agreed upon by patient/family including requesting consultants and ordering of imaging/procedures. Plan discussed with: Patient, Daughter (granddaughter) NYHA Physical activity limitations: NA Date of Service: Oct 01, 2024 Billing Provider: BETH MAYBERRY Cardiology Common Codes: [id number] INP/OBS CARE (High), [id number] CARE 30-74 MIN BETH MAYBERRY Oct 01, 2024 13:49
[2024-10-01] MEDS: GABAPENTIN 400 MG CAP PO SCH (14:15)
--- NOTE | 2024-10-01 14:41 | DVHDS2 ---
Discharge Summary Date of Admission Sep 29, 2024 at 21:51 Date of Discharge: Oct 01, 2024 Admitting Diagnosis palpitations Wounds: nil Labs/Diagnostic Data: Laboratory Results Test 10/01/24 05:46 09/30/24 05:14 09/30/24 02:55 09/30/24 00:53 D-Dimer, Quantitative 2.04 mg/L FEU (0.0-0.49) Sodium Level 143 mmol/L (136-145) Potassium Level 4.2 mmol/L (3.5-5.1) Chloride Level 110 mmol/L (98-107) Carbon Dioxide Level 22 mmol/L (20-31) Anion Gap 11 (5-15) Blood Urea Nitrogen 44 mg/dL (9-23) Creatinine 2.02 mg/dL (0.550-1.02) Glomerular Filtration Rate Calc 27 mL/min (>90) BUN/Creatinine Ratio 21.8 (10.0-20.0) Serum Glucose 151 mg/dL (74-106) Calcium Level 9.5 mg/dL (8.7-10.4) Magnesium Level 2.4 mg/dL (1.6-2.6) Thyroid Stimulating Hormone (TSH) 0.52 uIU/mL (0.55-4.78) White Blood Count 7.0 10^3/uL (4.4-10.8) Red Blood Count 4.44 10^6/uL (4.0-5.20) Hemoglobin 14.1 g/dL (12.2-16.2) Hematocrit 43.1 % (36.0-46.0) Mean Corpuscular Volume 97.1 fL (80.0-100.0) Mean Corpuscular Hemoglobin 31.8 pg (28.0-32.0) Mean Corpuscular Hemoglobin Concent 32.7 g/dL (32.0-36.0) Red Cell Distribution Width 14.2 % (11.8-14.3) Platelet Count 167 10^3/uL (140-450) Mean Platelet Volume 9.1 fL (6.9-10.8) Neutrophils (%) (Auto) 90.4 % (37.0-80.0) Lymphocytes (%) (Auto) 7.3 % (10.0-50.0) Monocytes (%) (Auto) 1.6 % (0.0-12.0) Eosinophils (%) (Auto) 0.4 % (0.0-7.0) Basophils (%) (Auto) 0.3 % (0.0-2.0) Neutrophils # (Auto) 6.4 10 ^3/uL (1.6-8.6) Lymphocytes # (Auto) 0.5 10 ^3/uL (0.4-5.4) Monocytes # (Auto) 0.1 10 ^3/uL (0-1.3) Eosinophils # (Auto) 0 10 ^3/uL (0-0.8) Basophils # (Auto) 0 10 ^3/uL (0-0.2) Nucleated Red Blood Cells 0.0 % Urine Color Yellow (Yellow) Urine Clarity Turbid (Clear) Urine pH 5.5 (5.0-9.0) Urine Specific [place] 1.019 (1.001-1.035) Urine Protein 1+ (Negative) Urine Ketones Negative (Negative) Urine Blood 3+ /uL (Negative) Urine Nitrite Negative (Negative) Urine Bilirubin Negative (Negative) Urine Urobilinogen 4 mg/dL (Negative) Urine Leukocyte Esterase 3+ /uL (Negative) Urine RBC 32 /hpf (0 - 4) Urine WBC Clumps Present /hpf (None Seen) Urine Microscopic WBC 265 /HPF (0-5) Urine Squamous Epithelial Cells Few /hpf (<5) Urine Bacteria Few /hpf (None Seen) Urine Glucose 2+ mg/dL (Normal) Urine Opiates Screen Pos (NEGATIVE) Urine Fentanyl Screen Neg (NEGATIVE) Urine Barbiturates Screen Neg (NEGATIVE) Urine Phencyclidine Screen Neg (NEGATIVE) Urine Amphetamines Screen Neg (NEGATIVE) Urine Benzodiazepines Screen Neg (NEGATIVE) Urine Cocaine Screen Neg (NEGATIVE) Urine Cannabinoids Screen Neg (NEGATIVE) Influenza Type A Antigen Negative (Negative) Influenza Type B Antigen Negative (Negative) SARS-CoV-2 Antigen (Rapid) Negative (NEGATIVE) Test 09/29/24 22:13 09/29/24 19:15 09/29/24 19:08 Troponin I High Sensitivity < 3 ng/L (</=34) Triglycerides Level 176 mg/dL (< 150) Cholesterol Level 158 mg/dL (< 200) LDL Cholesterol 92 mg/dL (< 100) HDL Cholesterol 33 mg/dL (40-59) Blood Gas Specimen Type Arterial Blood Gas Sample Site Right radial Blood Gas Patient Temperature 37.0 Arterial Blood Date Drawn [id number] Arterial Blood pH 7.457 (7.350-7.450) Arterial Blood Partial Pressure CO2 29.1 mmHg (32.0-45.0) Arterial Blood Partial Pressure O2 81.1 mmHg (83.0-108.0) Arterial Blood HCO3 20.1 mmol/L (21.0-28.0) Arterial Blood Oxygen Saturation 96.1 % (94.0-98.0) Arterial Blood Base Excess -2.4 mmol/L (-2.0-3.0) Arterial Blood Oxyhemoglobin 94.6 % (94.0-98.0) Arterial Blood Carboxyhemoglobin 1.3 % (0.5-1.5) Arterial Blood Methemoglobin 0.3 % (0.0-1.5) Khadar Test Modified Blood Gas Total Hemoglobin 15.00 g/dL (12.0-16.0) Blood Gas Modality Room air FiO2 % 21.0 Hemoglobin A1c 5.9 % A1C (<5.7) Lactic Acid Level 1.5 mmol/L (0.4-2.0) Total Bilirubin 0.7 mg/dL (0.2-1.0) Aspartate Amino Transferase (AST) 25 U/L (13-40) Alanine Aminotransferase (ALT) 17 U/L (7-40) Alkaline Phosphatase 109 U/L (46-116) B-Type Natriuretic Peptide 113.77 pg/mL (0-100) Total Protein 8.2 g/dL (5.7-8.2) Albumin 4.3 g/dL (3.2-4.8) Other Laboratory Tests 10/01/24 05:46 09/30/24 05:14 Brief Hx & Hospital Course: pt was admitted for palpitations/ekg was normal/had short run of atrial tachycardia(NOT ATRIAL FIBRILLATION)/Eecho showed severe mitral regurgitationand moderate pericardial effuision/was seen and cleraed by cardiology/per cardiology to have repeat echo in 4 weeks as op/pt urine culturea lso showed gram negative uti/opt was and will be treated for same/pt discharged home in stable condition/pt insists on going home today because she has apponitment with her specialist in am and hard to reschedulr. Consults/Reason for consult cardiology nephrology Operations or Procedures nil Condition at Discharge: Fair Final Diagnosis/Problems List palpitations resolved gram negative uti moderate pericardial effusion- pt to have echo in 4 weeks severe mitral regurgitation- ckd4- followed by Discharge Disposition: Home SNF Discharge Will this Physician continue t: No Discharge Instruct/Medications Activity: No Restrictions, As Tolerated Follow Up/Referral: pcp in 7-10 days on uti pain management in am cardiology in 4 weeks for repeat echo Medications: cipro floxacin 500 mg twice daily resume home meds as before Discharge Statement: "Patient was advised to return to the ER or call 911 if any headaches, dizziness, shortness of breath, chest pain, abdominal pain, bleeding, fevers, or worsening of medical condition. Patient was counseled about treatment plan, medications, possible side effects, patientverbalized understanding. All questions were answered to the best of my ability. This discharge took greater then 30 minutes in planning, reviewing documentation, counseling the patient, and discussing with other team members." ASSESSMENT ASSESSMENT Assessment Date of Service: Oct 01, 2024 Billing Provider: GABBY COOPER MD Common Visit Codes: 66333-EDE/OBS DISCH DAY >30min GABBY COOPER MD Oct 01, 2024 14:41
[2024-10-01] MEDS ORDERED: CIPR500T4 PO (14:42)
[2024-10-01 17:00] VITALS: BP 101/47; PULSE 59; RESP 17; TEMP 97.2; O2SAT 91
[2024-10-01 17:31] VITALS: TEMP 36.2
[2024-10-01] MEDS ORDERED: cefTRIAXone 1GM/50ML D5W 50 ML IV SCH (21:00)
[2024-10-02] MEDS ORDERED: ENOXAPARIN SOD 60 MG/0.6 ML SYRINGE SC SCH (10:00)
== END 2024-10-01 17:46 | disposition home or self-care (01) | DRG 306 ==
LOC: ER 18:50 → OVERFLOW 21:51 → MERGE 21:51 → OVERFLOW 21:57 → EAST 09-30 08:05 → TELE-EAST 09-30 18:21
PROVIDERS: ADMIT Internal Medicine; ATTEND Internal Medicine
DX: I34.0 Nonrheumatic mitral (valve) insufficiency (principal); N17.0 Acute kidney failure with tubular necrosis; N30.01 Acute cystitis with hematuria; I31.39 Other pericardial effusion (noninflammatory); I47.19 Other supraventricular tachycardia; N18.4 Chronic kidney disease, stage 4 (severe); E11.22 Type 2 diabetes mellitus with diabetic chronic kidney disease; B96.89 Other specified bacterial agents as the cause of diseases classified elsewhere; G89.29 Other chronic pain; M10.9 Gout, unspecified; Z87.442 Personal history of urinary calculi; Z83.3 Family history of diabetes mellitus; Z90.49 Acquired absence of other specified parts of digestive tract; Z98.84 Bariatric surgery status; Z90.710 Acquired absence of both cervix and uterus; Z79.899 Other long term (current) drug therapy; J06.9 Acute upper respiratory infection, unspecified; R06.03 Acute respiratory distress
CPT/HCPCS: 36415; 36600; 71045; 80048; 80053; 80061; 80307; 81001; 82805; 83036; 83605; 83735; 83880; 84439; 84443; 84484; 85025; 85379; 87086; 87088; 87186; 87426; 87804; 93005; 93306; 94640; G0378

== ENCOUNTER 2024-10-13 09:17 | Inpatient (IN) | payer OTHER ==
[~2024-10-13] VITALS: Ht 152.4 cm; Wt 102.4 kg
[~2024-10-13 09:17] MED LIST: ALLO100T PO; CIPR500T4 PO; GABA-1250 PO; GABA-339 PO; HYDR-4798 PO
--- NOTE | 2024-10-13 09:40 | ED.PDOC ---
HPI Comments 69 year old female ANA presents to the ED with chief complaint of chest pain. Patient reports that she has been experiencing left sided chest pain since last night when laying down, finding relief when she sits up straight. Patient relays that she wad admitted for 2 days 2 weeks ago for similar pain and was diagnosed with having a leaky valve in her heart. EMS states patient was given 324mg of ASA and 0.4mg of NTG with relief in her pain noted. Patient denies any SOB, di zziness, headache, fever, chills, N/V/D, abdominal pain, or numbness. Chief Complaint: Chest Pain Time Seen by MD: 09:35 Primary Care Provider: FLORENCIA Reviewed Notes: Nurses Notes, Senior Supplier Quality Engineer Notes, Medications, Allergies Allergies: Coded Allergies: Ketorolac Tromethamine (Verified Allergy, Unknown, 10/02/24) Home Meds Active Scripts Ciprofloxacin Hcl (Ciprofloxacin Hcl) 500 Mg Tab, 7 TAB PO BID, #14 TAB 0 Refills Prov:GABBY COOPER MD 10/01/24 Reported Medications Allopurinol (Allopurinol) 100 Mg Tab, 200 MG PO DAILY, TAB 09/30/24 Gabapentin (Gabapentin) 600 Mg Tab, 600 MG PO HS for 30 Days, MG 09/30/24 Gabapentin (Gabapentin) 300 Mg Cap, 400 MG PO BID for 30 Days, MG 09/30/24 Hydrocodone-Acetaminophen (Hydrocodone Bitartrate/AC 10-325 mg) 1 Tab Tab, 1 TAB PO TID, TAB 09/30/24 Information Source: Patient, Emergency Med Personnel Mode of Arrival: EMS Severity: Moderate Timing: Hours Duration: Since onset Prehospital treatment: None Location: Chest (L) Radiation: No Radiation Quality: Sharp Onset: At Rest Cardiac Risk Factors: None PE Risk Factors: None History of: Similar pain in past Past Medical History PAST MEDICAL HISTORY: Arthritis, CKF (stage 4), DM, Kidney Stones Past Medical History (Other): pericardial effusion, mitral regurgitation Surgical History: Cholecystectomy, Hysterectomy 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 History Family History Family History: Unknown Social History Smoker: Non-Smoker Alcohol: Denies ETOH Use Drugs: Denies Drug Use Lives In: Home Constitutional: denies: chills, diaphoresis, fatigue, fever, malaise, sweats, weakness, others EENTM: denies: blurred vision, double vision, ear bleeding, ear discharge, ear drainage, ear pain, ear ringing, eye pain, eye redness, hearing loss, mouth pain, mouth swelling, nasal discharge, nose bleeding, nose congestion, nose pain, photophobia, tearing, throat pain, throat swelling, voice changes, others Respiratory: denies: cough, hemoptysis, orthopnea, SOB at rest, shortness of breath, SOB with excertion, stridor, wheezing, others Cardiovascular: reports: chest pain; denies: dizzy spells, diaphoresis, Dyspnea on exertion, edema, irregular heart beat, left arm pain, lightheadedness, palpitations, PND, syncope, others Gastrointestinal: denies: abdomen distended, abdominal pain, blood streaked bowels, constipated, diarrhea, dysphagia, difficulty swallowing, hematemesis, melena, nausea, poor appetite, poor fluid intake, rectal bleeding, rectal pain, vomiting, others Genitourinary: denies: abnormal vagina bleeding, burning, dyspareunia, dysuria, flank pain, frequency, hematuria, incontinence, pain, , vagina discharge, urgency, others Neurological: denies: dizziness, fainting, headache, left sided numbness, left sided weakness, numbness, paresthesia, pre-existing deficit, right sided numbness, right sided weakness, seizure, speech problems, tingling, tremors, weakness, others Musculoskeletal: denies: back pain, gout, joint pain, joint swelling, muscle pain, muscle stiffness, neck pain, others Integumetry: denies: bruises, change in color, change in hair/nails, dryness, laceration, lesions, lumps, rash, wounds, others Allergic/Immunocompromised: denies: Difficulty Healing, Frequent Infections, Hives, Itching, others Hematologic/Lymphatic: denies: anemia, blood clots, easy bleeding, easy bruising, swollen glands, others Endocrine: denies: excessive hunger, excessive sweating, excessive thirst, excessive urination, flushing, intolerance to cold, intolerance to heat, unexplained weight gain, unexplained weight loss, others Psychiatric: denies: anxiety, bipolar disorder, depression, hopeless, panic disorder, schizophrenia, sleepless, suicidal, others All Other Systems: Reviewed and Negative Physical Exam General Appearance: No Apparent Distress, Normal HEENT: Normal ENT Inspection, PERRL/EOMI Neck: Full Range of Motion, Non-Tender, Normal, Normal Inspection Respiratory: Chest Non-Tender, Lungs Clear, No Accessory Muscle Use, No Respiratory Distress, Normal Breath Sounds Cardiovascular: No Edema, No JVD, No Murmur, No Gallop, Normal Peripheral Pulses, Regular Rate/Rhythm Breast Exam: Deferred Gastrointestinal: No Organomegaly, Non Tender, No Pulsatile Mass, Normal Bowel Sounds, Soft Genitalia: Deferred Pelvic: Deferred Rectal: Deferred Extremities: No calf tenderness, Normal capillary refill, Normal inspection, Normal range of motion, Non-tender, No pedal edema Musculoskeletal : Apperance: Normal Neurologic: Alert, underground foreman II-XII nml as Tested, No Motor Deficits, Normal Affect, Normal Mood, No Sensory Deficits Cerebellar Function: Normal Reflexes: Normal Skin: Dry, Normal Color, Warm Lymphatic: No Adenopathy Was a procedure done? Was a procedure done?: No CP Differential Dx Differential Diagnosis: VA, PAC's Differential Diagnosis: HTN Essential, HTN Accelerated Differential Diagnosis: Gastritis, Myocardial Infarction, Pneumonia X-Ray, Labs, Meds, VS Vital Signs Date Time Temp Pulse Resp B/P (MAP) Pulse Ox O2 Delivery O2 Flow Rate FiO2 10/13/24 10:15 91 10/13/24 09:33 98.4 100 16 119/66 (83) 96 10/13/24 09:19 93 Lab Test 10/13/24 10:30 10/13/24 09:30 Range/Units Troponin I High Sensitivity < 3 L < 3 L </=34 ng/L White Blood Count 8.6 4.4-10.8 10^3/uL Red Blood Count 4.34 4.0-5.20 10^6/uL Hemoglobin 13.7 12.2-16.2 g/dL Hematocrit 42.0 36.0-46.0 % Mean Corpuscular Volume 96.6 80.0-100.0 fL Mean Corpuscular Hemoglobin 31.6 28.0-32.0 pg Mean Corpuscular Hemoglobin Concent 32.7 32.0-36.0 g/dL Red Cell Distribution Width 14.4 H 11.8-14.3 % Platelet Count 119 L 140-450 10^3/uL Mean Platelet Volume 8.7 6.9-10.8 fL Neutrophils (%) (Auto) 73.8 37.0-80.0 % Lymphocytes (%) (Auto) 13.8 10.0-50.0 % Monocytes (%) (Auto) 8.6 0.0-12.0 % Eosinophils (%) (Auto) 3.2 0.0-7.0 % Basophils (%) (Auto) 0.6 0.0-2.0 % Neutrophils # (Auto) 6.3 1.6-8.6 10 ^3/uL Lymphocytes # (Auto) 1.2 0.4-5.4 10 ^3/uL Monocytes # (Auto) 0.7 0-1.3 10 ^3/uL Eosinophils # (Auto) 0.3 0-0.8 10 ^3/uL Basophils # (Auto) 0.1 0-0.2 10 ^3/uL Nucleated Red Blood Cells 0.1 % Sodium Level 140 136-145 mmol/L Potassium Level 4.7 3.5-5.1 mmol/L Chloride Level 108 H 98-107 mmol/L Carbon Dioxide Level 27 20-31 mmol/L Anion Gap 5 5-15 Blood Urea Nitrogen 21 9-23 mg/dL Creatinine 1.96 H 0.550-1.02 mg/dL Glomerular Filtration Rate Calc 28 >90 mL/min BUN/Creatinine Ratio 10.7 10.0-20.0 Serum Glucose 146 H 74-106 mg/dL Calcium Level 9.1 8.7-10.4 mg/dL Chest XR: FINDINGS: Lines and Tubes: None Lungs: Clear Pleura: Small left pleural effusion. No pneumothorax. Cardiomediastinal contours: Unremarkable Bones: Unremarkable IMPRESSION: No acute disease. Images Reviewed?: Images reviewed and evaluated by me Time of 1ST Reevaluation: 10:35 Reevaluation 1ST: Unchanged Patient Education/Counseling: Diagnosis, Treatment Family Education/Counseling: No Family Present Additional Information Previous visit documents reviewed: 09/29/24 for chest pain The following tests were ordered, and results were reviewed by me: CBC, BMP, Troponin, EKG, Chest XR Additional Information was gathered from interviewing the following independent historians: EMS I reviewed and agreed with the following test results read by other providers: Chest XR I discussed treatment and results with medical personnel. Departure 1 Departure Time of Disposition: 13:13 (Patient presented with chest pain that was concerning for possible STEMI, ACS, PE, Pneumonia, Muscle Strain, COPD, Dissection. Data: 1. I ordered and reviewed the result of at least 3 labs including a CBC, BMP, and Troponin. 2. I independently interpreted the following tests: EKG which shows sinus arrhythmia and Chest X-ray which shows benign chest.Risk:This patient has a high risk of morbidity due to further diagnostic testing or treatment and may suffer from an acute cardiac or respiratory disorder. Workup reveals concern for ACS versus heart failure and patient should be admitted for further workup and possible expert consultation. ) Impression: Primary Impression: Acute chest pain Additional Impression: Shortness of breath Disposition: ADMITTED INPATIENT Admit to: Med Surg Condition: Serious Critical Care Note Critical Care Time?: Yes Critical care comment: Acute chest pain Authorized and Performed by: Lidya Soni MD Total critical care time: Approximately 34 minutes Due to a high probability of clinically significant, life threatening deterioration, the patient required my highest level of preparedness to intervene emergently and I personally spent this critical care time directly and personally managing the patient. This critical care time included obtaining a history; examining the patient; pulse oximetry; ordering and review of studies; arranging urgent treatment with development of a management plan; evaluation of patient's response to treatment; frequent reassessment; and, discussions with other providers. This critical care time was performed to assess and manage the high probability of imminent, life-threatening deterioration that could result in multi-organ failure. It was exclusive of separately billable procedures and treating other patients and teaching time. Please see my other sections and the rest of the note for further information on patient assessment and treatment. Stability Stability form required: No Heart Score Heart Score: Heart Score Response (Comments) Value History Highly Suspicious 2 EKG Repolarization Disturb 1 Age >65 2 Risk Factors >3 or Hx ASHD 2 Troponin Normal limit 0 Total 7 I personally scribed for LIDYA SONI MD ([email or web address]) on 10/13/24 at 09:40. Electronically submitted by Navjot Gar ([email or web address]). I personally scribed for LIDYA SONI MD ([email or web address]) on 10/13/24 at 10:59. Electronically submitted by Navjot Gar ([email or web address]). LIDYA SONI MD Oct 13, 2024 09:40
[2024-10-13 09:43] LABS: Basophils # (auto) 0.1 10 ^3/uL (0-0.2); Basophils % (auto) 0.6 % (0.0-2.0); Eosinophils # (auto) 0.3 10 ^3/uL (0-0.8); Eosinophils % (auto) 3.2 % (0.0-7.0); Hemoglobin 13.7 g/dL (12.2-16.2); Lymphocytes # (auto) 1.2 10 ^3/uL (0.4-5.4); Lymphocytes % (auto) 13.8 % (10.0-50.0); Mean Corpuscular Hemoglobin 31.6 pg (28.0-32.0); Mean Corpuscular Hgb Conc. 32.7 g/dL (32.0-36.0); Mean Corpuscular Volume 96.6 fL (80.0-100.0); Monocytes # (auto) 0.7 10 ^3/uL (0-1.3); Monocytes % (auto) 8.6 % (0.0-12.0); Neutrophils # (auto) 6.3 10 ^3/uL (1.6-8.6); Neutrophils % (auto) 73.8 % (37.0-80.0); Nucleated Red Blood Cells % 0.1 %; Platelet Count (auto) 119 10^3/uL (140-450); Red Blood Cells 4.34 10^6/uL (4.0-5.20); Red Cell Distribution Width 14.4 % (11.8-14.3); White Blood Cell 8.6 10^3/uL (4.4-10.8)
[2024-10-13 09:50] LABS: Potassium 4.7 mmol/L (3.5-5.1); Sodium 140 mmol/L (136-145)
[2024-10-13 09:51] LABS: Anion Gap 5 (5-15); Calcium 9.1 mg/dL (8.7-10.4); Carbon Dioxide 27 mmol/L (20-31); Chloride 108 mmol/L (98-107)
--- NOTE | 2024-10-13 09:55 | DVH ---
CHEST RADIOGRAPH Indication: chest pain Technique: Single frontal view of the chest was obtained COMPARISON: None FINDINGS: Lines and Tubes: None Lungs: Clear Pleura: Small left pleural effusion. No pneumothorax. Cardiomediastinal contours: Unremarkable Bones: Unremarkable IMPRESSION: No acute disease.
[2024-10-13 09:56] LABS: Blood Urea Nitrogen 21 mg/dL (9-23)
[2024-10-13 09:57] LABS: BUN/Creatinine Ratio 10.7 (10.0-20.0); Glucose 146 mg/dL (74-106)
[2024-10-13 16:36] VITALS: PULSE 94; RESP 16; O2SAT 97
--- NOTE | 2024-10-13 19:02 | ECG ---
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
[2024-10-13] MEDS ORDERED: DEXTROSE (50%) 50ML SYRG IV PRN (20:30)
[2024-10-13] MEDS ORDERED: ONDANSETRON HCL 4 MG/2 ML VIAL IV PRN (20:30)
[2024-10-13] MEDS ORDERED: DOCUSATE SOD 100 MG CAP PO PRN (20:30)
--- NOTE | 2024-10-13 21:03 | DVHHP2 ---
History of Present Illness Reason for Visit: Acute chest pain History of Present Illness The patient is a 69-year-old female with multiple past medical history including DM, arthritis, chronic kidney failure, and kidney stones who presented to [facility] ED with complaint of chest pain. Patient reports symptoms pr ogressively get worse with substernal chest pain when lying down, finding relief when she sits up straight. Patient was given aspirin 324 mg and 0.4 mg nitro with relief of symptoms. Patient reports was recently admitted with similar symptoms. Patient was seen and evaluated in the ED, laboratory data shows WBC 8.6, platelets 119, sodium 140, potassium 4.7, BUN 21, creatinine 1.96, GFR 28, glucose 146, troponin 3. Chest x-ray show no acute disease. Please see medication orders section in the computer. On my assessment, patient denied chest pain at this moment, no headache, no dizziness, no shortness of breath, no nausea, no vomiting, no fever, no chills. Patient was admitted for further evaluation and medical management. Past Medical History Arthritis, CKF (stage 4), DM, Kidney Stones, Pericardial effusion, Mitral regurgitation Past Surgical History Cholecystectomy, Hysterectomy Family History Reviewed, noncontributory to the management of this case. Past Social History The patient lives at home, denies smoking, alcohol or illicit drugs abuse. Review of Systems Constitutional: No: Fever, Chills, Sweats, Weakness, Malaise, Other Eyes: No: Pain, Vision change, Conjunctivae inflammation, Eyelid inflammation, Other, Redness ENT: No: Ear pain, Ear discharge, Nose pain, Nose discharge, Nose congestion, Mouth pain, Mouth swelling, Throat pain, Throat swelling, Other Respiratory: No: Cough, Dry, Shortness of breath, SOB with excertion, Wheezing, Hemoptysis, Pleuritic Pain, Sputum, Wheezing, Other Cardiovascular: Chest Pain; No: Palpitations, Orthopnea, Paroxysmal Noc. Dyspnea, Edema, Lt Headedness, Other Gastrointestinal: No: Nausea, Vomiting, Abdominal Pain, Diarrhea, Constipation, Melena, Hematochezia, Other Genitourinary: No Dysuria, No Frequency, No Incontinence, No Hematuria, No Retention, No Other Musculoskeletal: No: other, neck pain, shoulder pain, arm pain, back pain, hand pain, leg pain, foot pain Skin: No: Rash, Lesions, Jaundice, Bruising, Other Neurological: No: Weakness, Numbness, Incoordination, Change in speech, Confusion, Seizures, Other Allergies: Coded Allergies: Ketorolac Tromethamine (Verified Allergy, Unknown, 10/02/24) Medications Current Medications Medications Dose Ordered Sig/Coy Route Start Time Stop Time Status Last Admin Dose Admin Gabapentin 400 mg BID PO 10/13/24 22:00 Diagnostic Test (Pha) 1 strip ACHS 10/13/24 22:00 Insulin Human Regular HS SC 10/13/24 22:00 Insulin Human Regular AC SC 10/14/24 07:00 Dextrose 50 ml UD PRN IV 10/13/24 20:30 Sodium Chloride 10 ml Q8HR IV 10/13/24 22:00 Acetaminophen/ Hydrocodone Bitart 1 tab Q4HP PRN PO 10/13/24 20:30 Ondansetron HCl 4 mg Q4HP PRN IV 10/13/24 20:30 Docusate Sodium 100 mg BIDPRN PRN PO 10/13/24 20:30 Acetaminophen 650 mg Q6HP PRN PO 10/13/24 20:30 Exam Vital Signs Vital Signs Date Time Temp Pulse Resp B/P (MAP) Pulse Ox O2 Delivery O2 Flow Rate FiO2 10/13/24 20:19 106 18 93 Room Air 10/13/24 20:00 99.3 153/88 (109) 99.3 10/13/24 16:36 0 21 General Appearance: Alert, Oriented X3, Cooperative, No acute distress HEENT: Atraumatic, PERRLA, EOMI, Mucous membr. moist/pink Respiratory: Clear to auscultation, Normal air movement Cardiovascular: Regular rate, Normal S1, Normal S2, No murmurs Abdominal: Normal bowel sounds, Soft, No tenderness, No hepatospenomegaly, No masses Extremities: No clubbing, No cyanosis, No edema, Normal pulses, No tenderness/swelling Skin: No rashes, No breakdown, No significant lesion Neuro: Normal gait, Normal speech, Strength at 5/5 X4 ext, Normal tone, Sensation intact, Cranial nerves 3-12 NL, Reflexes 2+ Psych/Mental Status: Mental status NL, Mood NL Labs/Xrays Labs Test 10/13/24 10:30 10/13/24 09:30 Range/Units Troponin I High Sensitivity < 3 L </=34 ng/L White Blood Count 8.6 4.4-10.8 10^3/uL Red Blood Count 4.34 4.0-5.20 10^6/uL Hemoglobin 13.7 12.2-16.2 g/dL Hematocrit 42.0 36.0-46.0 % Mean Corpuscular Volume 96.6 80.0-100.0 fL Mean Corpuscular Hemoglobin 31.6 28.0-32.0 pg Mean Corpuscular Hemoglobin Concent 32.7 32.0-36.0 g/dL Red Cell Distribution Width 14.4 H 11.8-14.3 % Platelet Count 119 L 140-450 10^3/uL Mean Platelet Volume 8.7 6.9-10.8 fL Neutrophils (%) (Auto) 73.8 37.0-80.0 % Lymphocytes (%) (Auto) 13.8 10.0-50.0 % Monocytes (%) (Auto) 8.6 0.0-12.0 % Eosinophils (%) (Auto) 3.2 0.0-7.0 % Basophils (%) (Auto) 0.6 0.0-2.0 % Neutrophils # (Auto) 6.3 1.6-8.6 10 ^3/uL Lymphocytes # (Auto) 1.2 0.4-5.4 10 ^3/uL Monocytes # (Auto) 0.7 0-1.3 10 ^3/uL Eosinophils # (Auto) 0.3 0-0.8 10 ^3/uL Basophils # (Auto) 0.1 0-0.2 10 ^3/uL Nucleated Red Blood Cells 0.1 % Sodium Level 140 136-145 mmol/L Potassium Level 4.7 3.5-5.1 mmol/L Chloride Level 108 H 98-107 mmol/L Carbon Dioxide Level 27 20-31 mmol/L Anion Gap 5 5-15 Blood Urea Nitrogen 21 9-23 mg/dL Creatinine 1.96 H 0.550-1.02 mg/dL Glomerular Filtration Rate Calc 28 >90 mL/min BUN/Creatinine Ratio 10.7 10.0-20.0 Serum Glucose 146 H 74-106 mg/dL Calcium Level 9.1 8.7-10.4 mg/dL PATIENT: FENG FRANK ACCT: [id number] UNIT: [id number] : 1955 LOC: ER ROOM / BED: / AGE / SEX: 69 / F ADM STATUS: REG ER SERVICE [id number] ORDERING PHYSICIAN: LIDYA RIBERA MD PROCEDURE(s): CXRP - CHEST PORTABLE REASON: chest pain ORDER NUMBER(s): [id number], ACCESSION NUMBER(s): [id number] CHEST RADIOGRAPH Indication: chest pain Technique: Single frontal view of the chest was obtained COMPARISON: None FINDINGS: Lines and Tubes: None Lungs: Clear Pleura: Small left pleural effusion. No pneumothorax. Cardiomediastinal contours: Unremarkable Bones: Unremarkable IMPRESSION: No acute disease. Assessment/Plan Assessment/Plan Acute chest pain Acute on chronic renal failure Diabetes mellitus with hyperglycemia Plan 1. Admit to telemetry unit 2. Breathing treatment 3. Pain control management 4. Management of fluids and electrolytes 5. Consultation for nephrology 6. Diagnostic tests chest x-ray 7. DVT prophylaxis on SCDs 8. Repeat labs CBC, CMP in a.m. 9. Continue with current medical management 10. Treatment plan discussed with patient and RN. Patient verbalized understanding. Plan discussed with: Patient, Other (RN) My Orders Orders - HAIR HUGHES DNP Procedure Category Date Status Time Consistent DIET 10/14/24 Transmitted Carb(Ccho)Diabetes Breakfast Gabapentin Capsule PHA 10/13/24 In Process (Neurontin Capsule) 22:00 *[facility] CONS 10/13/24 Transmitted -[place] 20:25 Glucose Blood PHA 10/13/24 In Process (Accu-Chek Comfort 22:00 Insulin R (Human) PHA 10/13/24 In Process (Insulin R) 22:00 Insulin R (Human) PHA 10/14/24 In Process (Insulin R) 07:00 Dextrose 50% Syringe PHA 10/13/24 In Process 20:30 Allergies WENDI 10/13/24 In Process 20:25 Code Status CODE 10/13/24 Transmitted 20:25 Sodium Chloride Lock PHA 10/13/24 In Process (Saline Lock Ns) 22:00 Oxygen Per Hour RT 10/13/24 Transmitted 20:25 Hydrocodone-Acet PHA 10/13/24 In Process 5/325mg Tab ([place] 20:30 Ondansetron Hcl PHA 10/13/24 In Process (Zofran) 20:30 Docusate Sodium PHA 10/13/24 In Process Capsule (Colace 20:30 Complete Blood Count LAB 10/14/24 Verified 04:00 Comprehensive LAB 10/14/24 Verified Metabolic Panel 04:00 Condition: Serious WENDI 10/13/24 In Process 20:25 Acetaminophen Tablet PHA 10/13/24 In Process (Tylenol Tablet) 20:30 Bedrest With Bathroom WENDI 10/13/24 In Process Privileg 20:25 Sequential WENDI 10/13/24 In Process Compression Device Problem List: (1) Acute chest pain (2) Acute on chronic renal failure (3) Diabetes mellitus with hyperglycemia Date of Service: Oct 13, 2024 Billing Provider: HAIR HUGHES DNP Common Visit Codes: [id number] INP/OBS CARE (HIGH) HAIR HUGHES DNP Oct 13, 2024 21:02
[2024-10-13] MEDS ORDERED: MORPHINE SULFATE INJ 2 MG/ml SYRG IV PRN (21:15)
[2024-10-13] MEDS ORDERED: NITROGLYCERIN 0.4 MG SL TAB SL PRN (21:15)
[2024-10-13] MEDS: ACCU-CHEK COMFORT CURVE STRIP VI SCH (22:00)
[2024-10-13] MEDS: SODIUM CHLOR 0.9% PF (SALINE LOCK) 10ML VIAL/SYR IV SCH (22:00)
[2024-10-13 23:07] VITALS: BP 143/78; PULSE 105; RESP 18; TEMP 98.7; O2SAT 95
[2024-10-13] MEDS: GABAPENTIN 400 MG CAP PO SCH (23:37)
[2024-10-13] MEDS: InsuLIN REG 1unit/0.01ml Soln (100units/ml) SC SCH (23:40)
[2024-10-14] VITALS (9 sets, daily range): BP systolic 116–160; BP diastolic 55–75; PULSE 77–105; RESP 17–32; TEMP 97.6–99.1; O2SAT 90–97
[2024-10-14 02:31] LABS: Urine Bacteria MANY /hpf (None Seen); Urine Blood 1+ /uL (Negative); Urine Clarity Turbid (Clear); Urine Color Colorless (Yellow); Urine Protein, UAD 1+ (Negative); Urine Specific Gravity 1.014 (1.001-1.035); Urine Squamous Epithelial Cell MOD /hpf (<5); Urine Urobilinogen Normal (Negative); Urine WBC 284 /HPF (0-5)
[2024-10-14] MEDS: cefTRIAXone 1GM/50ML D5W 50 ML IV ONE (04:24)
[2024-10-14 06:46] LABS: Basophils # (auto) 0.1 10 ^3/uL (0-0.2); Basophils % (auto) 0.6 % (0.0-2.0); Eosinophils # (auto) 0.1 10 ^3/uL (0-0.8); Eosinophils % (auto) 0.6 % (0.0-7.0); Hematocrit 42.5 % (36.0-46.0); Hemoglobin 14.5 g/dL (12.2-16.2); Lymphocytes % (auto) 6.2 % (10.0-50.0); Mean Corpuscular Hemoglobin 32.7 pg (28.0-32.0); Mean Corpuscular Hgb Conc. 34.2 g/dL (32.0-36.0); Mean Corpuscular Volume 95.6 fL (80.0-100.0); Monocytes # (auto) 1.6 10 ^3/uL (0-1.3); Monocytes % (auto) 9.9 % (0.0-12.0); Neutrophils # (auto) 13.3 10 ^3/uL (1.6-8.6); Neutrophils % (auto) 82.7 % (37.0-80.0); Platelet Count (auto) 123 10^3/uL (140-450); Red Blood Cells 4.44 10^6/uL (4.0-5.20); Red Cell Distribution Width 14.4 % (11.8-14.3); White Blood Cell 16.1 10^3/uL (4.4-10.8)
[2024-10-14] MEDS: InsuLIN REG 1unit/0.01ml Soln (100units/ml) SC SCH (06:49)
[2024-10-14 06:59] LABS: Alanine Aminotransferase 16 U/L (7-40); Alkaline Phosphatase 103 U/L (46-116); Anion Gap 11 (5-15); BUN/Creatinine Ratio 11.8 (10.0-20.0); Blood Urea Nitrogen 21 mg/dL (9-23); Calcium 9.3 mg/dL (8.7-10.4); Carbon Dioxide 20 mmol/L (20-31); Potassium 4.2 mmol/L (3.5-5.1); Sodium 139 mmol/L (136-145); Total Protein 7.8 g/dL (5.7-8.2)
[2024-10-14 07:00] LABS: Albumin 4.1 g/dL (3.2-4.8); Aspartate Aminotransferase 37 U/L (13-40)
[2024-10-14 07:07] LABS: Bilirubin, Total 1.3 mg/dL (0.2-1.0); Chloride 108 mmol/L (98-107); Glucose 182 mg/dL (74-106)
[2024-10-14] MEDS ORDERED: CYAN-17 PO (09:51)
[2024-10-14] MEDS ORDERED: CHOL100047 PO (09:51)
[2024-10-14] MEDS ORDERED: INSU1.2I SC (09:51)
[2024-10-14] MEDS ORDERED: [UNRECOGNIZED DRUG - CODE] PO (09:51)
[2024-10-14] MEDS ORDERED: FOLITAB22 PO (09:51)
[2024-10-14] MEDS ORDERED: POTA1080 (09:51)
[2024-10-14] MEDS: PHENAZOPYRIDINE HCL 100 MG TAB PO ONE (12:45)
[2024-10-14 13:41] LABS: Erythrocyte Sedimentation Rate 69 mm/hr (0-20)
[2024-10-14] MEDS: HYDROcodone-ACET 5/325MG TAB PO PRN (14:51)
--- NOTE | 2024-10-14 15:11 | DVHPNRES ---
Progress Note Date Seen: Oct 14, 2024 Resident Creating Document: VALDO MERRITT RESIDENT Medical Necessity Reason Pt with a Central, PICC or Fol: No Subjective Review of Systems Patient is a 69-year-old female with past medical history of type 2 diabetes, osteoarthritis, CKD, severe mitral regurgitation, moderate pericardial effusion, who came in due to chest pain. According to the patient, day before yesterday on 10/12/2024 she got out of the shower and was feeling chills, she subsequently went ahead and laid down in her bed when she started noticing a chest pain which was dull and achy, 7/10 without any associated symptoms, patient notes that pain worsens on lying down and it is relieved by sitting forward. At the time of my assessment patient is currently denying any active ongoing pain. Patient is also somewhat of a poor historian and forgetful, MCA testing score revealed 19 with mild cognitive decline. Chest x-ray showed no acute disease, serial troponins were less than 3. Past surgical history: Cholecystectomy, hysterectomy, bilateral salpingo- oophorectomy, lithotripsy Home medications: Allopurinol, insulin, gabapentin Past Hospitalization: Patient was hospitalized at the [facility] 2 weeks ago and was noted to have mitral regurgitation along with moderate size pericardial effusion, patient was instructed to get a repeat echocardiogram 4 weeks later which she has not gotten yet. Social & Personal history: Patient lives with her grand kids. Denies using tobacco, alcohol, drugs. Patient seen and examined at bedside. Patient is alert and oriented to time, place person and responding to all questions. General: Fatigue, fever, chills Eyes: No Pain, No Vision change, No Conjunctivae inflammation, No Eyelid inflammation, No Other, No Redness ENT: No Ear pain, No Ear discharge, No Nose pain, No Nose discharge, No Nose congestion, No Mouth pain, No Mouth swelling, No Throat pain, No Throat swelling, No Other Cardiovascular: No Chest Pain, No Palpitations, No Orthopnea, No Paroxysmal No Dyspnea, No Edema, No Lt Headedness, No Other Respiratory: No Cough, No Dry, Shortness of breath, No SOB with exertion, No Wheezing, No Hemoptysis, No Pleuritic Pain, No Sputum, No Other Gastrointestinal: No Nausea, No Vomiting, No Abdominal Pain, No Diarrhea, No Constipation, No Melena, No Hematochezia, No Other Genitourinary: No Dysuria, No Frequency, No Incontinence, No Hematuria, No Retention, No Other Musculoskeletal: No other, No neck pain, No shoulder pain, No arm pain, No back pain, No hand pain, No leg pain, No foot pain Skin: No Rash, No Lesions, No Jaundice, No Bruising, No Other Objective vital signs Vital Sign Date Time Temp Pulse Resp B/P (MAP) Pulse Ox O2 Delivery O2 Flow Rate FiO2 10/14/24 13:00 98.9 96 32 145/67 (93) 90 98.9 10/14/24 08:00 Nasal Cannula* 2 28 Total Intake and Output 10/13/24 10/13/24 10/14/24 15:00 23:00 07:00 Intake Total 340 ml Balance 340 ml medications Current Medications Medications Dose Ordered Sig/Coy Route Start Time Stop Time Status Last Admin Dose Admin Gabapentin 400 mg BID PO 10/13/24 22:00 10/14/24 09:17 400 MG Diagnostic Test (Pha) 1 strip ACHS 10/13/24 22:00 10/14/24 12:26 1 STRIP Insulin Human Regular HS SC 10/13/24 22:00 10/13/24 23:40 3 UNITS Insulin Human Regular AC SC 10/14/24 07:00 10/14/24 12:26 2 UNITS Dextrose 50 ml UD PRN IV 10/13/24 20:30 Sodium Chloride 10 ml Q8HR IV 10/13/24 22:00 10/14/24 14:00 10 ML Acetaminophen/ Hydrocodone Bitart 1 tab Q4HP PRN PO 10/13/24 20:30 Ondansetron HCl 4 mg Q4HP PRN IV 10/13/24 20:30 Docusate Sodium 100 mg BIDPRN PRN PO 10/13/24 20:30 Acetaminophen 650 mg Q6HP PRN PO 10/13/24 20:30 Nitroglycerin 0.4 mg Q5MINP PRN SL 10/13/24 21:15 Morphine Sulfate 2 mg Q30M PRN IV 10/13/24 21:15 Ceftriaxone Sodium 50 ml @ 100 mls/hr Q24H IV 10/15/24 04:00 Phenazopyridine HCl 200 mg BID PO 10/14/24 22:00 Examination General Appearance: Cooperative. Well developed. Well nourished. NAD. Dry mucous membranes Head Exam: Normal inspection Neck Exam: Normal inspection. Non-tender. Normal alignment Pulmonary/Respiratory: Chest non-tender. Clear bilateral breath sounds, no crackles, no wheezing. Cardiovascular/Chest: Regular rate and rhythm. No murmurs. No JVD. Peripheral Pulses: 2+ Radial (R). 2+ Radial (L). 2+ Pedal (R). 2+ Pedal (L) Abdominal Exam: Normal bowel sounds. Distended abdomen with some shifting dullness, Nontender. No hepatospenomegaly. No masses Ankle Exam: Negative ankle edema Lower extremities: Trace lower extremity edema Neuro/Mental Status: MCA 19. Coherent Thoughts/Psych: Normal thought pattern. Appropriate mood and affect. Good judgement and insight Skin Exam: Normal inspection. Normal color. Warm. Dry laboratory and microbiology Laboratory Tests 10/14/24 06:04 Test 10/14/24 06:04 Range/Units Serum Glucose 182 H 74-106 mg/dL Labs and/or images reviewed: Labs reviewed by me, Image(s) reviewed by me Problem List/Assessment/Plan Problem List/Assessment/Plan Pleuritic chest pain possibly pericarditis vs secondary to [id number] pericardial effusion noted on echo 09/30/2024 Mitral regurgitation, severe Marked left atrium enlargement Small bilateral pleural effusions - CXR: No acute disease - ordered blood culture, SINDY, HIV and acute hepatitis panel - ordered echocardiogram: EF 55%. Moderate pericardial effusion noted 1.4 cm adjacent to RV. No hemodynamic compromise noted. IVC does collapse. - patient is allergic to ketorolac, we will consider glucocorticoids based on echo findings Acute complicated UTI - UA shows 3+ leukocyte esterase, 284 WBCs and many bacteria - ordered urine culture - IV ceftriaxone - phenazopyridine 200 mg p.o. b.i.d. 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 - monitor - renal ultrasound: Bilateral medical renal disease Degenerative disc disease History of gout - [place] 5 q.4 hours as needed for moderate pain - acetaminophen as needed for mild pain Goals of care: Full code, discussed for >16 minutes on 10/14/24 Plan discussed with patient Plan discussed with Dr. Ferguson Plan discussed with: Patient, Other (Granddaughter, RN) My Orders My Orders Orders - VALDO MERRITT RESIDENT Procedure Category Date Status Time Echo 2d Mode Cardiac US 10/14/24 Logged DOP 12:48 Kidney US 10/14/24 Taken 12:48 Date of Service: Oct 14, 2024 Billing Provider: DOUG FERGUSON MD Common Visit Codes: [id number] INP/OBS CARE(HIGH) VALDO MERRITT Oct 14, 2024 15:11 DOUG FERGUSON MD Oct 14, 2024 20:39
--- NOTE | 2024-10-14 15:18 | DVHINCON2 ---
Date of service: Oct 14, 2024 Referring Physician Jose Aranda Reason for Consultation AILYN History of Present Illness 69 Y/O F with history of CKD III, DM, nephrolithiasis, cholecystectomy, hysterectomy and arthritis presented with chief complaint of chest pain, Initial Cr is 1.96 mg/dl. Troponin is negative x2. CXR does not show any acute disease. Guest Experience Captain is Dr. Josh oscar outpatient. Consulted for management of AILYN on CKD Past Medical History CKD III DM Nephrolithiasis Arthritis Past Surgical History Cholecystectomy, Hysterectomy Allergies: Coded Allergies: Ketorolac Tromethamine (Verified Allergy, Unknown, 10/02/24) Home Meds Reported Medications Folic Fzqe-Owiiaxnbck-Hawfxphj (Folbic) Tab, 1 TAB PO DAILY, #90 TAB 1 Refill 10/14/24 Cyanocobalamin (B12) 1,000 Mcg Cap, 1000 MCG PO, CAP 10/14/24 Iron Glycinate (Iron) 18 Mg/15 Ml Liq, 18 MG PO, LIQ 10/14/24 Cholecalciferol (D3) 1,000 Unit Cap, 1000 UNIT PO DAILY, CAP 10/14/24 Insulin Glargine ([place] Solostar) 300 Unit/Ml Inj, SC 10/14/24 Potassium Citrate (Potassium Citrate) 1,080 Mg Tab, 1 10/14/24 Allopurinol (Allopurinol) 100 Mg Tab, 200 MG PO DAILY, TAB 09/30/24 Gabapentin (Gabapentin) 600 Mg Tab, 600 MG PO HS for 30 Days, MG 09/30/24 Gabapentin (Gabapentin) 300 Mg Cap, 400 MG PO BID for 30 Days, MG 09/30/24 Hydrocodone-Acetaminophen (Hydrocodone Bitartrate/AC 10-325 mg) 1 Tab Tab, 1 TAB PO TID, TAB 09/30/24 Current Medications Current Medications Medications (Trade) Dose Ordered Sig/Coy Route PRN Reason Start Time Stop Time Status Last Admin Gabapentin (Neurontin Capsule) 400 mg BID PO 10/13/24 22:00 10/14/24 09:17 Diagnostic Test (Pha) (Accu-Chek Comfort Curve T) 1 strip ACHS 10/13/24 22:00 10/14/24 12:26 Insulin Human Regular (InsuLIN R) HS SC 10/13/24 22:00 10/13/24 23:40 Insulin Human Regular (InsuLIN R) AC SC 10/14/24 07:00 10/14/24 12:26 Dextrose 50 ml UD PRN IV Blood Sugar LESS THAN 60 10/13/24 20:30 Sodium Chloride (Saline Lock Ns) 10 ml Q8HR IV 10/13/24 22:00 10/14/24 14:00 Acetaminophen/ Hydrocodone Bitart ([place] 5/325MG Tab) 1 tab Q4HP PRN PO MODERATE PAIN (4-6 PAIN SCALE) 10/13/24 20:30 10/14/24 14:51 Ondansetron HCl (Zofran) 4 mg Q4HP PRN IV NAUSEA / VOMITING 10/13/24 20:30 Docusate Sodium (Colace Capsule) 100 mg BIDPRN PRN PO FOR CONSTIPATION 10/13/24 20:30 Acetaminophen (Tylenol Tablet) 650 mg Q6HP PRN PO PAIN SCALE 1-3 OR TEMP>100.4 10/13/24 20:30 Nitroglycerin (Ntrostat Sublingual) 0.4 mg Q5MINP PRN SL FOR CHEST PAIN 10/13/24 21:15 Morphine Sulfate 2 mg Q30M PRN IV FOR CHEST PAIN 10/13/24 21:15 Ceftriaxone Sodium 50 ml @ 100 mls/hr DAILY@09 IV 10/15/24 09:00 10/14/24 06:57 DC Ceftriaxone Sodium 50 ml @ 100 mls/hr Q24H IV 10/15/24 04:00 Phenazopyridine HCl (Pyridium Tablet) 200 mg BID PO 10/14/24 22:00 Family History: Cancer G8 MOTHER G8 FATHER Diabetes mellitus G8 MOTHER G8 FATHER Family history: Diabetes mellitus G8 MOTHER G8 FATHER Prostate cancer G8 FATHER Review of Systems as per HPI, all other systems were reviewed and are negative H&P Exam Vital Signs/I&O Vital Sign Date Time Temp Pulse Resp B/P (MAP) Pulse Ox O2 Delivery O2 Flow Rate FiO2 10/14/24 13:00 98.9 96 32 145/67 (93) 90 98.9 10/14/24 08:00 Nasal Cannula* 2 28 Intake and Output 10/13/24 10/14/24 19:00 07:00 Intake Total 340 ml Balance 340 ml Intake Oral 240 ml IV Total 100 ml # Voids 5 Physical Exam Gen: NAD HEENT: NC,AT Lungs: CTA b/l Cardiac: RRR, no murmur Abd: soft, no tenderness Ext: no edema Neuro: no focal deficits Labs/Diagnostic Data Labs/Diagnostic Data Laboratory Tests Test 10/14/24 12:18 10/14/24 06:14 10/14/24 06:04 10/14/24 02:14 Range/Units POC Glucose 152 H 177 H 70-106 mg/dl White Blood Count 16.1 #H 4.4-10.8 10^3/uL Red Blood Count 4.44 4.0-5.20 10^6/uL Hemoglobin 14.5 12.2-16.2 g/dL Hematocrit 42.5 36.0-46.0 % Mean Corpuscular Volume 95.6 80.0-100.0 fL Mean Corpuscular Hemoglobin 32.7 H 28.0-32.0 pg Mean Corpuscular Hemoglobin Concent 34.2 32.0-36.0 g/dL Red Cell Distribution Width 14.4 H 11.8-14.3 % Platelet Count 123 L 140-450 10^3/uL Mean Platelet Volume 8.7 6.9-10.8 fL Neutrophils (%) (Auto) 82.7 H 37.0-80.0 % Lymphocytes (%) (Auto) 6.2 L 10.0-50.0 % Monocytes (%) (Auto) 9.9 0.0-12.0 % Eosinophils (%) (Auto) 0.6 0.0-7.0 % Basophils (%) (Auto) 0.6 0.0-2.0 % Neutrophils # (Auto) 13.3 H 1.6-8.6 10 ^3/uL Lymphocytes # (Auto) 1.0 0.4-5.4 10 ^3/uL Monocytes # (Auto) 1.6 H 0-1.3 10 ^3/uL Eosinophils # (Auto) 0.1 0-0.8 10 ^3/uL Basophils # (Auto) 0.1 0-0.2 10 ^3/uL Nucleated Red Blood Cells 0.0 % Erythrocyte Sedimentation Rate 69 H 0-20 mm/hr Sodium Level 139 136-145 mmol/L Potassium Level 4.2 3.5-5.1 mmol/L Chloride Level 108 H 98-107 mmol/L Carbon Dioxide Level 20 20-31 mmol/L Anion Gap 11 5-15 Blood Urea Nitrogen 21 9-23 mg/dL Creatinine 1.78 H 0.550-1.02 mg/dL Glomerular Filtration Rate Calc 31 >90 mL/min BUN/Creatinine Ratio 11.8 10.0-20.0 Serum Glucose 182 H 74-106 mg/dL Calcium Level 9.3 8.7-10.4 mg/dL Total Bilirubin 1.3 H 0.2-1.0 mg/dL Aspartate Amino Transferase (AST) 37 13-40 U/L Alanine Aminotransferase (ALT) 16 7-40 U/L Alkaline Phosphatase 103 46-116 U/L C-Reactive Protein High Sensitivity 10.20 H <1.0 mg/dL Total Protein 7.8 5.7-8.2 g/dL Albumin 4.1 3.2-4.8 g/dL Urine Color Colorless Yellow Urine Clarity Turbid H Clear Urine pH 7.0 5.0-9.0 Urine Specific [place] 1.014 1.001-1.035 Urine Protein 1+ H Negative Urine Ketones Negative Negative Urine Blood 1+ H Negative /uL Urine Nitrite Negative Negative Urine Bilirubin Negative Negative Urine Urobilinogen Normal Negative mg/dL Urine Leukocyte Esterase 3+ Negative /uL Urine RBC 13 0 - 4 /hpf Urine Microscopic WBC 284 H 0-5 /HPF Urine Squamous Epithelial Cells Mod <5 /hpf Urine Bacteria Many H None Seen /hpf Urine Glucose 2+ H Normal mg/dL Test 10/13/24 23:24 10/13/24 10:30 10/13/24 09:30 Range/Units POC Glucose 178 H 70-106 mg/dl Troponin I High Sensitivity < 3 L < 3 L </=34 ng/L White Blood Count 8.6 4.4-10.8 10^3/uL Red Blood Count 4.34 4.0-5.20 10^6/uL Hemoglobin 13.7 12.2-16.2 g/dL Hematocrit 42.0 36.0-46.0 % Mean Corpuscular Volume 96.6 80.0-100.0 fL Mean Corpuscular Hemoglobin 31.6 28.0-32.0 pg Mean Corpuscular Hemoglobin Concent 32.7 32.0-36.0 g/dL Red Cell Distribution Width 14.4 H 11.8-14.3 % Platelet Count 119 L 140-450 10^3/uL Mean Platelet Volume 8.7 6.9-10.8 fL Neutrophils (%) (Auto) 73.8 37.0-80.0 % Lymphocytes (%) (Auto) 13.8 10.0-50.0 % Monocytes (%) (Auto) 8.6 0.0-12.0 % Eosinophils (%) (Auto) 3.2 0.0-7.0 % Basophils (%) (Auto) 0.6 0.0-2.0 % Neutrophils # (Auto) 6.3 1.6-8.6 10 ^3/uL Lymphocytes # (Auto) 1.2 0.4-5.4 10 ^3/uL Monocytes # (Auto) 0.7 0-1.3 10 ^3/uL Eosinophils # (Auto) 0.3 0-0.8 10 ^3/uL Basophils # (Auto) 0.1 0-0.2 10 ^3/uL Nucleated Red Blood Cells 0.1 % Sodium Level 140 136-145 mmol/L Potassium Level 4.7 3.5-5.1 mmol/L Chloride Level 108 H 98-107 mmol/L Carbon Dioxide Level 27 20-31 mmol/L Anion Gap 5 5-15 Blood Urea Nitrogen 21 9-23 mg/dL Creatinine 1.96 H 0.550-1.02 mg/dL Glomerular Filtration Rate Calc 28 >90 mL/min BUN/Creatinine Ratio 10.7 10.0-20.0 Serum Glucose 146 H 74-106 mg/dL Calcium Level 9.1 8.7-10.4 mg/dL Assessment Assessment: AILYN, prerenal Chest pain , r/o ACS. Serial troponin negative CKD III DM h/o nephrolithiasis cholecystectomy hysterectomy arthritis Plan: gfr improving f/u Renal US Cardiology consult Daily BMP Strict I&Os Plan discussed with: Patient LAKHWINDER ZAMBRANO MD Oct 14, 2024 15:18
--- NOTE | 2024-10-14 15:27 | DVH ---
INDICATION: ascites medical renal disease TECHNIQUE: Multiple real-time sonographic images of the kidneys and bladder were obtained. COMPARISON: None FINDINGS: The right kidney measures 10 cm in length, which is normal in size. Increased bilateral akbar al echogenicity. No hydronephrosis. The left kidney measures 11 cm in length, which is normal in size. No hydronephrosis. Trace bilateral pleural effusion. IMPRESSION: 1. Bilateral medical renal disease. 2/ trace bilateral pleural effusion.
--- NOTE | 2024-10-14 15:43 | DVHSR ---
APPROVED REPORT EXAM: LIMITED Two-dimensional and M-mode echocardiogram with Doppler and color Doppler. Blood Pressure: 130/64 mmHg INDICATION Moderate pericarditis 2 weeks ago Limited repeat RISK FACTORS Obesity: Height: 5'0", Weight: 220 Mitral Valve MitralMitral Stenosis E/A ratio0.02D MVAcm2 Other Information Technically limited study due to body habitus, limited repeat to eval effusion. Conclusion lvef 55% moderate pericardial effusion noted, 1.4 cm adjacent to RV no HD compromise noted IVC does collapse
[2024-10-14] MEDS ORDERED: hydrALAZINE HCL 20 MG/ML VL IV PRN (21:00)
[2024-10-14] MEDS: PHENAZOPYRIDINE HCL 100 MG TAB PO SCH (22:47)
[2024-10-15] VITALS (9 sets, daily range): BP systolic 117–153; BP diastolic 66–81; PULSE 63–102; RESP 14–18; TEMP 97.7–100; O2SAT 90–96
[2024-10-15] MEDS: cefTRIAXone 1GM/50ML D5W 50 ML IV SCH (04:08)
--- NOTE | 2024-10-15 05:29 | DVH ---
CHEST RADIOGRAPH Indication: FU Technique: Single frontal view of the chest was obtained Comparison: XY CHEST PORTABLE on DOS: 10/13/24 IMPRESSION: Cardiomediastinal silhouette is enlarged. Obscuration of the left hemidiaphragm May relate to effusi on, atelectasis and/or consolidation. Hywy-vf-opnmlaji pulmonary vascular congestion. Patchy airspa ce opacity in the right lower lung.
[2024-10-15 06:01] LABS: Basophils # (auto) 0 10 ^3/uL (0-0.2); Basophils % (auto) 0.3 % (0.0-2.0); Eosinophils # (auto) 0.4 10 ^3/uL (0-0.8); Eosinophils % (auto) 3.1 % (0.0-7.0); Hematocrit 42.4 % (36.0-46.0); Hemoglobin 14.4 g/dL (12.2-16.2); Lymphocytes # (auto) 1.2 10 ^3/uL (0.4-5.4); Lymphocytes % (auto) 9.7 % (10.0-50.0); Mean Corpuscular Hemoglobin 32.7 pg (28.0-32.0); Mean Corpuscular Volume 96.1 fL (80.0-100.0); Monocytes # (auto) 1.1 10 ^3/uL (0-1.3); Monocytes % (auto) 9.4 % (0.0-12.0); Neutrophils # (auto) 9.3 10 ^3/uL (1.6-8.6); Neutrophils % (auto) 77.5 % (37.0-80.0); Platelet Count (auto) 107 10^3/uL (140-450); Red Blood Cells 4.41 10^6/uL (4.0-5.20); Red Cell Distribution Width 14.4 % (11.8-14.3)
[2024-10-15 06:31] LABS: Alanine Aminotransferase 18 U/L (7-40); Alkaline Phosphatase 97 U/L (46-116); Anion Gap 10 (5-15); Aspartate Aminotransferase 34 U/L (13-40); BUN/Creatinine Ratio 12.5 (10.0-20.0); Calcium 9.6 mg/dL (8.7-10.4); Carbon Dioxide 24 mmol/L (20-31); Chloride 106 mmol/L (98-107); Potassium 4.3 mmol/L (3.5-5.1); Sodium 140 mmol/L (136-145); Total Protein 7.5 g/dL (5.7-8.2)
[2024-10-15 06:40] LABS: Erythrocyte Sedimentation Rate 64 mm/hr (0-20)
[2024-10-15 06:43] LABS: Blood Urea Nitrogen 23 mg/dL (9-23); Creatine Kinase IFCC 27 U/L (34-145); Glucose 160 mg/dL (74-106)
[2024-10-15] MEDS: AZITHROMYCIN 500MG/ 250ML 250 ML IV SCH (08:35)
[2024-10-15] MEDS ORDERED: cefTRIAXone 1GM/50ML D5W 50 ML IV SCH (09:00)
[2024-10-15] MEDS ORDERED: IBUPROFEN 600 MG TAB PO ONE (09:30)
[2024-10-15] MEDS: COLCHICINE 0.6 MG CAP PO SCH (11:26)
[2024-10-15] MEDS: PANTOPRAZOLE 40 MG/10 ML VIAL INJ IV SCH (11:26)
--- NOTE | 2024-10-15 12:02 | DVHPN2 ---
Progress Note - Dictate Date Seen: Oct 15, 2024 Medical Necessity Reason Pt with a Central, PICC or Fol: No Subjective no new symptoms vital signs Vital Sign Date Time Temp Pulse Resp B/P (MAP) Pulse Ox O2 Delivery O2 Flow Rate FiO2 10/15/24 08:30 98.7 92 14 117/66 (83) 92 98.7 10/15/24 08:00 Room Air* 0 21 Total Intake and Output 10/14/24 10/14/24 10/15/24 15:00 23:00 07:00 Intake Total 240 ml 500 ml 270 ml Balance 240 ml 500 ml 270 ml medications Current Medications Medications Dose Ordered Sig/Coy Route Start Time Stop Time Status Last Admin Dose Admin Gabapentin 400 mg BID PO 10/13/24 22:00 10/15/24 08:35 400 MG Diagnostic Test (Pha) 1 strip ACHS 10/13/24 22:00 10/15/24 11:25 1 STRIP Insulin Human Regular HS SC 10/13/24 22:00 10/14/24 23:02 2 UNITS Insulin Human Regular AC SC 10/14/24 07:00 10/15/24 11:28 2 UNITS Dextrose 50 ml UD PRN IV 10/13/24 20:30 Sodium Chloride 10 ml Q8HR IV 10/13/24 22:00 10/15/24 05:42 10 ML Acetaminophen/ Hydrocodone Bitart 1 tab Q4HP PRN PO 10/13/24 20:30 10/15/24 06:26 1 TAB Acetaminophen 650 mg Q6HP PRN PO 10/13/24 20:30 Ceftriaxone Sodium 50 ml @ 100 mls/hr Q24H IV 10/15/24 04:00 10/15/24 04:08 100 MLS/HR Phenazopyridine HCl 200 mg BID PO 10/14/24 22:00 10/15/24 08:34 200 MG Azithromycin 250 ml @ 125 mls/hr DAILY IV 10/15/24 10:00 10/15/24 08:35 125 MLS/HR Colchicine 0.6 mg Q12HR PO 10/15/24 10:00 10/15/24 11:26 0.6 MG Pantoprazole Sodium 40 mg BID IV 10/15/24 10:00 10/15/24 11:26 40 MG objective Gen: NAD, AAOx3 HEENT: NC,AT Lungs: CTA b/l Cardiac: RRR, no murmur Abd: soft, no tenderness Ext: no edema Neuro: no focal deficits laboratory and microbiology Laboratory Tests 10/15/24 05:45 Test 10/15/24 05:45 Range/Units Serum Glucose 160 H 74-106 mg/dL Assessment/Plan Assessment: AILYN, prerenal Chest pain , r/o ACS. Serial troponin negative CKD III DM h/o nephrolithiasis cholecystectomy hysterectomy arthritis Plan: there is pulm vascular congestion on CXR, start Lasix 20 mg IV daily gfr stable Renal US does not show hydronephrosis Cardiology consult Daily BMP Strict I&Os Plan discussed with: Patient LAKHWINDER ZAMBRANO MD Oct 15, 2024 12:02
[2024-10-15] MEDS: predniSONE 20 MG TAB PO ONE (13:07)
--- NOTE | 2024-10-15 13:34 | DVHINCON2 ---
JAMES DIAZ [facility] 10/15/24 1334: Date Seen: Oct 15, 2024 Referring Physician MD Hans Reason for Consultation Pericardial effusion History of Present Illness This is a 69-year-old female patient who presents to the emergency room with chief complaint of chest pain. The patient reports that she has been having chest pain for approximately two weeks now. The patient was recently seen at this facility and discharged on 10/01/24 where she was found to have a moderate pericardial effusion. During this admission, she describes the chest pain as provoked with certain positions, intermittent, aching in nature, and left-sided without radiation. Patient reports that sitting upright and leaning forward helps her chest pain. Exacerbating symptoms include lying flat. Initial twelve lead electrocardiogram on this admission reveals normal sinus rhythm with nonspecific ST segment changes to anterior leads and artifact (machine reading EKG as Afib). Significant past medical history includes pericardial effusion, type 2 diabetes mellitus, peripheral neuropathy, chronic kidney disease, arthritis, and morbid obesity. The patient states that she was scheduled to have a first time visit with [employer] Dr. Castillo tomorrow (10/16/24). Past Medical History Past medical history reviewed. No other significant than mentioned above. Past Surgical History Hysterectomy Cholecystectomy Gastric bypass Family History: Cancer G8 MOTHER G8 FATHER Diabetes mellitus G8 MOTHER G8 FATHER Family history: Diabetes mellitus G8 MOTHER G8 FATHER Prostate cancer G8 FATHER Family History Family history reviewed. Social History Denies the use of tobacco, alcohol or illicit drugs. Allergies: Coded Allergies: Ketorolac Tromethamine (Verified Allergy, Unknown, 10/02/24) Home Meds Reported Medications Folic Tsaz-Uqmznpfemo-Lphzkasb (Folbic) Tab, 1 TAB PO DAILY, #90 TAB 1 Refill 10/14/24 Cyanocobalamin (B12) 1,000 Mcg Cap, 1000 MCG PO, CAP 10/14/24 Iron Glycinate (Iron) 18 Mg/15 Ml Liq, 18 MG PO, LIQ 10/14/24 Cholecalciferol (D3) 1,000 Unit Cap, 1000 UNIT PO DAILY, CAP 10/14/24 Insulin Glargine (Toujeo Solostar) 300 Unit/Ml Inj, SC 10/14/24 Potassium Citrate (Potassium Citrate) 1,080 Mg Tab, 1 10/14/24 Allopurinol (Allopurinol) 100 Mg Tab, 200 MG PO DAILY, TAB 09/30/24 Gabapentin (Gabapentin) 600 Mg Tab, 600 MG PO HS for 30 Days, MG 09/30/24 Gabapentin (Gabapentin) 300 Mg Cap, 400 MG PO BID for 30 Days, MG 09/30/24 Hydrocodone-Acetaminophen (Hydrocodone Bitartrate/AC 10-325 mg) 1 Tab Tab, 1 TAB PO TID, TAB 09/30/24 Home Meds Home medications reviewed. Current Medications Current Medications Medications (Trade) Dose Ordered Sig/Coy Route PRN Reason Start Time Stop Time Status Last Admin Ceftriaxone Sodium 50 ml @ 100 mls/hr DAILY@09 IV 10/15/24 09:00 10/14/24 06:57 DC Ceftriaxone Sodium 50 ml @ 100 mls/hr Q24H IV 10/15/24 04:00 10/15/24 04:08 Phenazopyridine HCl (Pyridium Tablet) 200 mg BID PO 10/14/24 22:00 10/15/24 08:34 Hydralazine HCl (Apresoline Injection) 10 mg Q6HR PRN IV SBP>150 10/14/24 21:00 10/15/24 09:33 DC Azithromycin 250 ml @ 125 mls/hr DAILY IV 10/15/24 10:00 10/15/24 08:35 Colchicine (Colcrys) 0.6 mg Q12HR PO 10/15/24 10:00 10/15/24 11:26 Ibuprofen (Motrin Tablet) 600 mg TID PO 10/15/24 14:00 10/15/24 11:13 DC Pantoprazole Sodium (Protonix) 40 mg BID IV 10/15/24 10:00 10/15/24 11:26 Furosemide (Lasix Injection) 20 mg DAILY IV 10/16/24 10:00 Prednisone 40 mg DAILY PO 10/16/24 10:00 Review of Systems Constitutional: No symptom reported Ears, Nose, & Throat: No symptom reported Eyes: No symptom reported Neurological: No symptoms reported Pulmonary/Respiratory: No symptoms reported Cardiovascular: Chest pain Gastrointestinal: No symptom reported Genitourinary: No symptom reported Musculoskeletal: No symptom reported Skin: No symptom reported Psychiatric: No symptom reported Endocrine: No symptom reported Hematologic/Lymphatic: No symptom reported Vital Signs Vital Signs Date Time Temp Pulse Resp B/P (MAP) Pulse Ox O2 Delivery O2 Flow Rate FiO2 3/9/25 12:48 98.3 97 16 145/71 (95) 93 98.3 10/15/24 08:00 Room Air* 0 21 Physical Exam General Appearance: Cooperative. Well-developed. Well-nourished. No acute distress. Pulmonary/Respiratory: Clear, bilateral breaths sounds. Cardiovascular/Chest: Regular rate and rhythm. Peripheral Pulses: 2+ Radial (R). 2+ Radial (L). 2+ Pedal (R). 2+ Pedal (L) Abdominal Exam: Normal bowel sounds. Ankle Exam: Negative ankle edema Lower extremities: Negative lower extremity edema Neuro/Mental Status: A/OX4, coherent. Thoughts/Psych: Normal thought pattern. Appropriate mood and affect. Good judgment and insight. Appearance: No acute distress. Skin Exam: Normal inspection. Normal color. Warm and dry. Labs/Diagnostic Data Labs Test 10/15/24 11:09 10/15/24 05:45 10/14/24 16:17 10/14/24 06:04 Range/Units POC Glucose 158 H 70-106 mg/dl White Blood Count 12.0 #H 4.4-10.8 10^3/uL Red Blood Count 4.41 4.0-5.20 10^6/uL Hemoglobin 14.4 12.2-16.2 g/dL Hematocrit 42.4 36.0-46.0 % Mean Corpuscular Volume 96.1 80.0-100.0 fL Mean Corpuscular Hemoglobin 32.7 H 28.0-32.0 pg Mean Corpuscular Hemoglobin Concent 34.0 32.0-36.0 g/dL Red Cell Distribution Width 14.4 H 11.8-14.3 % Platelet Count 107 L 140-450 10^3/uL Mean Platelet Volume 8.5 6.9-10.8 fL Neutrophils (%) (Auto) 77.5 37.0-80.0 % Lymphocytes (%) (Auto) 9.7 L 10.0-50.0 % Monocytes (%) (Auto) 9.4 0.0-12.0 % Eosinophils (%) (Auto) 3.1 0.0-7.0 % Basophils (%) (Auto) 0.3 0.0-2.0 % Neutrophils # (Auto) 9.3 H 1.6-8.6 10 ^3/uL Lymphocytes # (Auto) 1.2 0.4-5.4 10 ^3/uL Monocytes # (Auto) 1.1 0-1.3 10 ^3/uL Eosinophils # (Auto) 0.4 0-0.8 10 ^3/uL Basophils # (Auto) 0 0-0.2 10 ^3/uL Nucleated Red Blood Cells 0.0 % Erythrocyte Sedimentation Rate 64 H 0-20 mm/hr Sodium Level 140 136-145 mmol/L Potassium Level 4.3 3.5-5.1 mmol/L Chloride Level 106 98-107 mmol/L Carbon Dioxide Level 24 20-31 mmol/L Anion Gap 10 5-15 Blood Urea Nitrogen 23 9-23 mg/dL Creatinine 1.84 H 0.550-1.02 mg/dL Glomerular Filtration Rate Calc 30 >90 mL/min BUN/Creatinine Ratio 12.5 10.0-20.0 Serum Glucose 160 H 74-106 mg/dL Calcium Level 9.6 8.7-10.4 mg/dL Total Bilirubin 1.0 0.2-1.0 mg/dL Aspartate Amino Transferase (AST) 34 13-40 U/L Alanine Aminotransferase (ALT) 18 7-40 U/L Alkaline Phosphatase 97 46-116 U/L Creatine Kinase 27 L 34-145 U/L B-Type Natriuretic Peptide 152.27 0-100 pg/mL Total Protein 7.5 5.7-8.2 g/dL Albumin 4.0 3.2-4.8 g/dL C-Reactive Protein High Sensitivity 13.63 H <1.0 mg/dL HIV (1&2) Antibody Negative Negative Test 10/14/24 02:14 10/13/24 10:30 Range/Units Urine Color Colorless Yellow Urine Clarity Turbid H Clear Urine pH 7.0 5.0-9.0 Urine Specific [place] 1.014 1.001-1.035 Urine Protein 1+ H Negative Urine Ketones Negative Negative Urine Blood 1+ H Negative /uL Urine Nitrite Negative Negative Urine Bilirubin Negative Negative Urine Urobilinogen Normal Negative mg/dL Urine Leukocyte Esterase 3+ Negative /uL Urine RBC 13 0 - 4 /hpf Urine Microscopic WBC 284 H 0-5 /HPF Urine Squamous Epithelial Cells Mod <5 /hpf Urine Bacteria Many H None Seen /hpf Urine Glucose 2+ H Normal mg/dL Troponin I High Sensitivity < 3 L </=34 ng/L Assessment Moderate pericardial effusion Pericarditis Type 2 diabetes mellitus Chronic kidney disease Urinary tract infection Morbid obesity Plan/Recommendation We will continue with the following plan/recommendations (Dr. Gaines): Case reviewed and discussed with . A repeat transthoracic echocardi ogram was performed and reviewed by and reveals an EF of 55% with a moderate pericardial effusion noted. At this time, we will recommend to initiate the pericarditis treatment plan with colchicine. Since the patient has chronic kidney disease, we will recommend avoiding NSAID's and recommend steroids (prednisone). Continue with medical management. Thank you for allowing us to care for this patient. Please call with any questions or concerns. Critical care time spent: 44 minutes This medical document was created using an electronic medical record system with voice recognition software and computerized dictation system. Although this document has been carefully reviewed, there might still be some phonetic and typographical errors. Occasional wrong-word or ``sound-alike substitutions may have occurred due to the inherent limitations of voice recognition software. These areas are purely typographical due to imperfections of the software programs and do not reflect any compromise in the patient's medical care. Please read the chart carefully and recognize, using context, where these substitutions have occurred. Plan discussed with: Patient NYHA Physical activity limitations: NA Date of Service: Oct 15, 2024 Billing Provider: JAMES DIAZ Cardiology Common Codes: [id number] INP/OBS CARE (High) Cardiology Consultation Codes: [id number] CONSULT <45MIN LELA GAINES MD 10/16/24 0841: Family History: Cancer G8 MOTHER G8 FATHER Diabetes mellitus G8 MOTHER G8 FATHER Family history: Diabetes mellitus G8 MOTHER G8 FATHER Prostate cancer G8 FATHER Allergies: Coded Allergies: Ketorolac Tromethamine (Verified Allergy, Unknown, 10/02/24) Home Meds Reported Medications Folic Qfeb-Yqvymbvqyo-Vxpkrxsp (Folbic) Tab, 1 TAB PO DAILY, #90 TAB 1 Refill 10/14/24 Cyanocobalamin (B12) 1,000 Mcg Cap, 1000 MCG PO, CAP 10/14/24 Iron Glycinate (Iron) 18 Mg/15 Ml Liq, 18 MG PO, LIQ 10/14/24 Cholecalciferol (D3) 1,000 Unit Cap, 1000 UNIT PO DAILY, CAP 10/14/24 Insulin Glargine (Toujeo Solostar) 300 Unit/Ml Inj, SC 10/14/24 Potassium Citrate (Potassium Citrate) 1,080 Mg Tab, 1 10/14/24 Allopurinol (Allopurinol) 100 Mg Tab, 200 MG PO DAILY, TAB 09/30/24 Gabapentin (Gabapentin) 600 Mg Tab, 600 MG PO HS for 30 Days, MG 09/30/24 Gabapentin (Gabapentin) 300 Mg Cap, 400 MG PO BID for 30 Days, MG 09/30/24 Hydrocodone-Acetaminophen (Hydrocodone Bitartrate/AC 10-325 mg) 1 Tab Tab, 1 TAB PO TID, TAB 09/30/24 Plan/Recommendation per pt she was sent home on no meds for pericarditis she has very high crp , needs aggressive treatment start steroids (cannot take nsaids ) this is 2nd line and colchicine fu with her cards already made Plan discussed with: Patient JAMES DIAZ Oct 15, 2024 13:34 LELA GAINES MD Oct 16, 2024 08:41
[2024-10-15] MEDS ORDERED: IBUPROFEN 600 MG TAB PO SCH (14:00)
[2024-10-15] MEDS: ACETAMINOPHEN 325 MG TAB PO PRN (16:56)
--- NOTE | 2024-10-15 20:52 | DVHPNRES ---
Progress Note Date Seen: Oct 15, 2024 Resident Creating Document: NILSON STALLWORTH RESIDENT Medical Necessity Reason Pt with a Central, PICC or Fol: No Subjective Review of Systems Jadyn Knight is a 69-year-old female patient who presents to ED with chief complaint of oppressive retrosternal chest pain intensity 7/10 which worsens with lying down and is relieved when she sits forward, which started the approximately two weeks before she was admitted. In the ER troponin x3 was negative, EKG showed no ST alteration (normal sinus rhythm at 90 beats per minute narrow QRS, with negative T-waves in anterior leads, no [place] depression nor concave ST elevation) Past medical history: type 2 diabetes, osteoarthritis, CKD, severe mitral regurgitation, moderate pericardial effusion, recent admission due to palpitation secondary to atrial tachycardia (not atrial fibrillation) with evidence of moderate size pericardial effusion. Past surgical history: Cholecystectomy, hysterectomy, bilateral salpingo- oophorectomy, lithotripsy Family history: Noncontributory Social history: Patient lives with her grand kids. Denies using tobacco, alcohol, drugs. Allergies: Ketoralac, tromethamine Home medications: Allopurinol, insulin, gabapentin Patient seen and examined at bedside. Currently has no new complaints. We will start patient on colchicine and steroids, since patient has CKD Objective vital signs Vital Sign Date Time Temp Pulse Resp B/P (MAP) Pulse Ox O2 Delivery O2 Flow Rate FiO2 10/15/24 18:01 98.1 98.1 10/15/24 16:43 102 17 144/70 (94) 92 10/15/24 08:00 Room Air* 0 21 Total Intake and Output 10/14/24 10/14/24 10/15/24 15:00 23:00 07:00 Intake Total 240 ml 500 ml 270 ml Balance 240 ml 500 ml 270 ml medications Current Medications Medications Dose Ordered Sig/Coy Route Start Time Stop Time Status Last Admin Dose Admin Gabapentin 400 mg BID PO 10/13/24 22:00 10/15/24 08:35 400 MG Diagnostic Test (Pha) 1 strip ACHS 10/13/24 22:00 10/15/24 16:48 1 STRIP Insulin Human Regular HS SC 10/13/24 22:00 10/14/24 23:02 2 UNITS Insulin Human Regular AC SC 10/14/24 07:00 10/15/24 16:55 3 UNITS Dextrose 50 ml UD PRN IV 10/13/24 20:30 Sodium Chloride 10 ml Q8HR IV 10/13/24 22:00 10/15/24 13:07 10 ML Acetaminophen/ Hydrocodone Bitart 1 tab Q4HP PRN PO 10/13/24 20:30 10/15/24 14:39 1 TAB Acetaminophen 650 mg Q6HP PRN PO 10/13/24 20:30 10/15/24 16:56 650 MG Ceftriaxone Sodium 50 ml @ 100 mls/hr Q24H IV 10/15/24 04:00 10/15/24 04:08 100 MLS/HR Phenazopyridine HCl 200 mg BID PO 10/14/24 22:00 10/15/24 08:34 200 MG Azithromycin 250 ml @ 125 mls/hr DAILY IV 10/15/24 10:00 10/15/24 08:35 125 MLS/HR Colchicine 0.6 mg Q12HR PO 10/15/24 10:00 10/15/24 11:26 0.6 MG Pantoprazole Sodium 40 mg BID IV 10/15/24 10:00 10/15/24 11:26 40 MG Furosemide 20 mg DAILY IV 10/16/24 10:00 Prednisone 40 mg DAILY PO 10/16/24 10:00 Examination Patient lying in bed, in no acute distress General: Lucid, afebrile, mucosae are moist Cardiovascular: Normal S1 and S2. No murmurs, gallops or rubs Respiratory: Normal ventilation mechanics. Clear lung sounds on auscultation Abdomen: Soft, nontender, no organomegaly, normal bowel sounds MSK/skin: Mobilizes 4 limbs. Skin is dry and warm Neurological: Oriented in 3 spheres. No motor no sensitive deficits. Pupils are isocoric and reactive laboratory and microbiology Laboratory Tests 10/15/24 05:45 Test 10/15/24 05:45 Range/Units Serum Glucose 160 H 74-106 mg/dL Microbiology Date/Time Source Procedure Growth Status 10/14/24 16:22 Blood Blood Culture - Preliminary NO GROWTH AFTER 24 HOURS OF INCUBATION. Resulted Problem List/Assessment/Plan Problem List/Assessment/Plan Assessment: Pericarditis with moderate pericardial effusion Acute complicated UTI AILYN likely hemodynamically mediated/VMN on CKD 4 Small bilateral pleural effusions Asymptomatic Severe Mitral regurgitation (LVEF 55%) Atrial tachycardia symptomatic by palpitation Type 2 diabetes - (Hb A1c 5.9 on 09/29/2024) Diabetic Peripheral neuropathy Degenerative disc disease Osteoarthritis History of gout Plan: Ordered blood culture, SINDY, HIV and acute hepatitis panel Ordered echocardiogram: EF 55%. Moderate pericardial effusion noted 1.4 cm adjacent to RV. No hemodynamic compromise noted. IVC does collapse. Patient currently under prednisone and colchicine for treatment of pericarditis. Decided not to indicate NSAIDs due to CKD Completed renal ultrasound which showed bilateral medical renal disease ESR was positive (69-64). CRP also positive (10.2 -13.63). We will monitor response with anti-inflammatory medication with C-reactive protein. Currently under empiric IV antibiotic (ceftriaxone) On moderate sliding scale insulin Resumed home medication Optimize pain medication Cardiology consulted: Diagnosed pericarditis with moderate pericardial effusion, indicated colchicine in steroids. Nephrology on board: Monitoring kidney function. Goals of care discussed with patient for over 18 minutes: Full code status Discussed plan with Dr. Ferguson, patient and nurses: Currently under anti- inflammatory medication (steroids and colchicine), we will monitor response with clinical manifestations and C-reactive protein. Plan discussed with: Patient, Daughter, Other (Nurses) My Orders My Orders Orders - NILSON STALLWORTH Procedure Category Date Status Time Colchicine (Colcrys) PHA 10/15/24 In Process 10:00 Pantoprazole PHA 10/15/24 In Process (Protonix) 10:00 Prednisone Tablet PHA 10/16/24 In Process 10:00 Date of Service: Oct 15, 2024 Billing Provider: DOUG FERGUSON MD Common Visit Codes: [id number] INP/OBS CARE(HIGH) NILSON STALLWORTH Oct 15, 2024 20:52 DOUG FERGUSON MD Oct 15, 2024 22:19
[2024-10-16 01:00] VITALS: BP 140/73; PULSE 77; RESP 18; TEMP 97.8; O2SAT 90
[2024-10-16 05:00] VITALS: BP 139/66; PULSE 76; RESP 18; TEMP 97.8; O2SAT 92
[2024-10-16 08:00] VITALS: PULSE 76; PULSE 78; RESP 17; O2SAT 96
[2024-10-16 08:37] LABS: Basophils # (auto) 0 10 ^3/uL (0-0.2); Eosinophils # (auto) 0 10 ^3/uL (0-0.8); Eosinophils % (auto) 0.1 % (0.0-7.0); Hematocrit 41.7 % (36.0-46.0); Hemoglobin 13.9 g/dL (12.2-16.2); Lymphocytes # (auto) 0.9 10 ^3/uL (0.4-5.4); Lymphocytes % (auto) 7.7 % (10.0-50.0); Mean Corpuscular Hgb Conc. 33.3 g/dL (32.0-36.0); Mean Corpuscular Volume 95.9 fL (80.0-100.0); Monocytes # (auto) 0.9 10 ^3/uL (0-1.3); Monocytes % (auto) 7.9 % (0.0-12.0); Neutrophils # (auto) 10.2 10 ^3/uL (1.6-8.6); Neutrophils % (auto) 84.3 % (37.0-80.0); Platelet Count (auto) 129 10^3/uL (140-450); Red Blood Cells 4.35 10^6/uL (4.0-5.20); Red Cell Distribution Width 14.3 % (11.8-14.3); White Blood Cell 12.1 10^3/uL (4.4-10.8)
[2024-10-16] MEDS: predniSONE 20 MG TAB PO SCH (08:56)
[2024-10-16 09:07] LABS: Alanine Aminotransferase 21 U/L (7-40); Albumin 4.1 g/dL (3.2-4.8); Alkaline Phosphatase 107 U/L (46-116); Anion Gap 9 (5-15); Aspartate Aminotransferase 27 U/L (13-40); BUN/Creatinine Ratio 16.3 (10.0-20.0); Bilirubin, Total 0.6 mg/dL (0.2-1.0); Calcium 9.7 mg/dL (8.7-10.4); Carbon Dioxide 24 mmol/L (20-31); Potassium 4.5 mmol/L (3.5-5.1); Sodium 142 mmol/L (136-145); Total Protein 7.7 g/dL (5.7-8.2)
[2024-10-16 09:09] LABS: Blood Urea Nitrogen 34 mg/dL (9-23); Chloride 109 mmol/L (98-107); Glucose 174 mg/dL (74-106)
[2024-10-16 09:19] LABS: CRP High Sensitivity 17.46 mg/dL (<1.0)
[2024-10-16] MEDS ORDERED: FUROSEMIDE 20 MG/2 ML VIAL IV SCH (10:00)
--- NOTE | 2024-10-16 10:04 | DVHPN2 ---
Progress Note Date Seen: Oct 16, 2024 Medical Necessity Reason Pt with a Central, PICC or Fol: No Subjective Patient reports: Feels better Other Systems: pt in bathroom Objective vital signs Vital Sign Date Time Temp Pulse Resp B/P (MAP) Pulse Ox O2 Delivery O2 Flow Rate FiO2 10/16/24 05:00 97.8 76 18 139/66 (90) 92 97.8 10/15/24 20:00 Room Air* 0 21 Total Intake and Output 10/15/24 10/15/24 10/16/24 15:00 23:00 07:00 Intake Total 250 ml 700 ml 350 ml Balance 250 ml 700 ml 350 ml medications Current Medications Medications Dose Ordered Sig/Coy Route Start Time Stop Time Status Last Admin Dose Admin Gabapentin 400 mg BID PO 10/13/24 22:00 10/16/24 08:56 400 MG Diagnostic Test (Pha) 1 strip ACHS 10/13/24 22:00 10/16/24 06:37 1 STRIP Insulin Human Regular HS SC 10/13/24 22:00 10/15/24 23:04 6 UNITS Insulin Human Regular AC SC 10/14/24 07:00 10/16/24 06:36 6 UNITS Dextrose 50 ml UD PRN IV 10/13/24 20:30 Sodium Chloride 10 ml Q8HR IV 10/13/24 22:00 10/16/24 06:21 10 ML Acetaminophen/ Hydrocodone Bitart 1 tab Q4HP PRN PO 10/13/24 20:30 10/15/24 22:54 1 TAB Acetaminophen 650 mg Q6HP PRN PO 10/13/24 20:30 10/15/24 16:56 650 MG Ceftriaxone Sodium 50 ml @ 100 mls/hr Q24H IV 10/15/24 04:00 10/16/24 04:09 100 MLS/HR Phenazopyridine HCl 200 mg BID PO 10/14/24 22:00 10/16/24 08:56 200 MG Azithromycin 250 ml @ 125 mls/hr DAILY IV 10/15/24 10:00 10/16/24 08:56 125 MLS/HR Colchicine 0.6 mg Q12HR PO 10/15/24 10:00 10/16/24 08:56 0.6 MG Pantoprazole Sodium 40 mg BID IV 10/15/24 10:00 10/16/24 08:55 40 MG Prednisone 40 mg DAILY PO 10/16/24 10:00 10/16/24 08:56 40 MG Examination: GENERAL:Abnormal, HEENT:Abnormal, LUNGS:Abnormal, CVS:Abnormal, ABDOMEN:Abnormal laboratory and microbiology Laboratory Tests 10/16/24 08:06 Test 10/16/24 08:06 Range/Units Serum Glucose 174 H 74-106 mg/dL Microbiology Date/Time Source Procedure Growth Status 10/14/24 16:22 Blood Blood Culture - Preliminary NO GROWTH AFTER 24 HOURS OF INCUBATION. Resulted Problem List/Assessment/Plan Problem List/Assessment/Plan recurrent pericarditis with pericardial effusion obesity htn colchicine and prednisone will need construction scheduler taper pt has appt with her cards today, will need to reschedule no nsaids cv cleared for dc home fu dr gilbert Plan discussed with: Patient Date of Service: Oct 16, 2024 Billing Provider: LELA GAINES MD Common Visit Codes: NOT BILLABLE LELA GAINES MD Oct 16, 2024 10:04
[2024-10-16 10:33] LABS: Hepatitis A Ab IgM Negative; Hepatitis B Core IgM Negative (Negative); Hepatitis B Surface Antigen Negative (Negative); Hepatitis C Antibody Negative (Negative)
[2024-10-16 13:00] VITALS: BP 141/84; PULSE 83; RESP 18; TEMP 98.5; O2SAT 90
--- NOTE | 2024-10-16 14:11 | ECG ---
[facility] Test Date: 2024-10-13 Test Time: 10:15:33 Pat Name: FENG FRANK Department: er Room: 0238T A Gender: F Pail Tester: inga : 1955 Requested By: LIDYA RIBERA Order Number: [id number] Reading MD: Angus Patel Measurements Intervals [place] Rate: 91 P: 28 ME: 159 QRS: 40 QRSD: 93 T: 24 QT: 365 QTc: 450 Interpretive Statements Sinus rhythm Nonspecific T abnormalities, anterior leads Electronically Signed On 10-18-2024 16:34:18 PDT by Angus Patel Please click the below link to view image of tracing.
--- NOTE | 2024-10-16 14:12 | ECG ---
[facility] Test Date: 2024-10-13 Test Time: 12:11:11 Pat Name: FENG FRANK Department: er Room: 0238T A Gender: F Embryology Teacher: inga : 1955 Requested By: LIDYA RIBERA Order Number: [id number] Reading MD: Angus Patel Measurements Intervals [place] Rate: 87 P: 16 VA: 165 QRS: 38 QRSD: 91 T: 9 QT: 365 QTc: 439 Interpretive Statements Sinus rhythm Nonspecific T abnormalities, anterior leads Electronically Signed On 10-18-2024 16:34:22 PDT by Angus Patel Please click the below link to view image of tracing.
--- NOTE | 2024-10-16 14:21 | DVHDSRES ---
Discharge Summary Date of Admission Resident Creating Document: TONIA BRONSON RESIDENT Oct 13, 2024 at 21:01 Date of Discharge: Oct 16, 2024 Admitting Diagnosis acute chest pain Labs/Diagnostic Data: Laboratory Results Test 10/16/24 11:18 10/16/24 08:06 10/15/24 05:45 10/14/24 16:17 POC Glucose 216 mg/dl (70-106) White Blood Count 12.1 10^3/uL (4.4-10.8) Red Blood Count 4.35 10^6/uL (4.0-5.20) Hemoglobin 13.9 g/dL (12.2-16.2) Hematocrit 41.7 % (36.0-46.0) Mean Corpuscular Volume 95.9 fL (80.0-100.0) Mean Corpuscular Hemoglobin 32.0 pg (28.0-32.0) Mean Corpuscular Hemoglobin Concent 33.3 g/dL (32.0-36.0) Red Cell Distribution Width 14.3 % (11.8-14.3) Platelet Count 129 10^3/uL (140-450) Mean Platelet Volume 9.0 fL (6.9-10.8) Neutrophils (%) (Auto) 84.3 % (37.0-80.0) Lymphocytes (%) (Auto) 7.7 % (10.0-50.0) Monocytes (%) (Auto) 7.9 % (0.0-12.0) Eosinophils (%) (Auto) 0.1 % (0.0-7.0) Basophils (%) (Auto) 0.0 % (0.0-2.0) Neutrophils # (Auto) 10.2 10 ^3/uL (1.6-8.6) Lymphocytes # (Auto) 0.9 10 ^3/uL (0.4-5.4) Monocytes # (Auto) 0.9 10 ^3/uL (0-1.3) Eosinophils # (Auto) 0 10 ^3/uL (0-0.8) Basophils # (Auto) 0 10 ^3/uL (0-0.2) Nucleated Red Blood Cells 0.0 % Sodium Level 142 mmol/L (136-145) Potassium Level 4.5 mmol/L (3.5-5.1) Chloride Level 109 mmol/L (98-107) Carbon Dioxide Level 24 mmol/L (20-31) Anion Gap 9 (5-15) Blood Urea Nitrogen 34 mg/dL (9-23) Creatinine 2.08 mg/dL (0.550-1.02) Glomerular Filtration Rate Calc 26 mL/min (>90) BUN/Creatinine Ratio 16.3 (10.0-20.0) Serum Glucose 174 mg/dL (74-106) Calcium Level 9.7 mg/dL (8.7-10.4) Total Bilirubin 0.6 mg/dL (0.2-1.0) Aspartate Amino Transferase (AST) 27 U/L (13-40) Alanine Aminotransferase (ALT) 21 U/L (7-40) Alkaline Phosphatase 107 U/L (46-116) C-Reactive Protein High Sensitivity 17.46 mg/dL (<1.0) Total Protein 7.7 g/dL (5.7-8.2) Albumin 4.1 g/dL (3.2-4.8) Erythrocyte Sedimentation Rate 64 mm/hr (0-20) Creatine Kinase 27 U/L (34-145) B-Type Natriuretic Peptide 152.27 pg/mL (0-100) Test 10/14/24 06:04 10/14/24 02:14 10/13/24 10:30 Hepatitis A IgM Antibody Negative Hepatitis B Surface Antigen Negative (Negative) Hepatitis B Core IgM Antibody Negative (Negative) Hepatitis C Antibody Negative (Negative) HIV (1&2) Antibody Negative (Negative) Urine Color Colorless (Yellow) Urine Clarity Turbid (Clear) Urine pH 7.0 (5.0-9.0) Urine Specific Forgan 1.014 (1.001-1.035) Urine Protein 1+ (Negative) Urine Ketones Negative (Negative) Urine Blood 1+ /uL (Negative) Urine Nitrite Negative (Negative) Urine Bilirubin Negative (Negative) Urine Urobilinogen Normal mg/dL (Negative) Urine Leukocyte Esterase 3+ /uL (Negative) Urine RBC 13 /hpf (0 - 4) Urine Microscopic WBC 284 /HPF (0-5) Urine Squamous Epithelial Cells Mod /hpf (<5) Urine Bacteria Many /hpf (None Seen) Urine Glucose 2+ mg/dL (Normal) Troponin I High Sensitivity < 3 ng/L (</=34) Other Laboratory Tests 10/16/24 08:06 Brief Hx & Hospital Course: HPI: 69-year-old female patient with past medical history of type 2 diabetes, arthritis, chronic kidney disease, who presents to the emergency department with a chief complaint of chest pain, per patient the symptoms were progressively getting worse and described as substernal chest pain that exacerbates when lying flat, finding relief when she sits up straight. Hospital course: On admission patient was given aspirin 324 mg and 0.4 mg nitro with relieving of her symptoms. Chest x-ray was unremarkable and patient was admitted to telemetry unit. Patient's past medical history also includes pericardial effusion, an echocardiogram was ordered and showed ejection fraction 55% with moderate pericardial effusion so so patient was started on pericarditis treatment plan with colchicine and as this patient has chronic kidney disease with the then started patient on NSAIDs instead of with the discharge the patient on prednisone with the recommendation of taper the medication in the following weeks. Patient was seen by Cardiology, her primary allergy and immunology specialist Dr. Lee , she will need to follow up with the heme, from cardiology standpoint patient was cleared for discharge, and from nephrology standpoint the patient will need to follow-up with her computer numerical control grinder Dr. Moreno Disposition: discharge home Goals of care discussed with the patient for 31 minutes Code status: Full code Operations or Procedures [place] [id number] Ph: [phone] DIAGNOSTIC IMAGING Diagnostic Imaging Report : [id number] Signed PATIENT: FENG FRANK ACCT: [id number] UNIT: [id number] : 1955 [facility] [place] AGE / SEX: 69 / F ADM STATUS: ADM IN SERVICE 1248 ORDERING PHYSICIAN: VALDO MERRITT RESIDENT PROCEDURE(s): KIDUS - KIDNEY REASON: ascites? medical renal disease? ORDER NUMBER(s): [id number], ACCESSION NUMBER(s): [id number] INDICATION: ascites medical renal disease TECHNIQUE: Multiple real-time sonographic images of the kidneys and bladder were obtained. COMPARISON: None FINDINGS: The right kidney measures 10 cm in length, which is normal in size. Increased bilateral renal echogenicity. No hydronephrosis. The left kidney measures 11 cm in length, which is normal in size. No hydronephrosis. Trace bilateral pleural effusion. IMPRESSION: 1. Bilateral medical renal disease. 2/ trace bilateral pleural effusion. ATED BY: ALLI FERNANDEZ MD DICTATED DATE/TIME: 10/14/24 1524 SIGNED BY: ALLI FERNANDEZ MD SIGNED DATE/TIME: 10/14/24 152 CC: [place] [id number] Ph: [phone] DIAGNOSTIC IMAGING Diagnostic Imaging Report : [id number] Signed PATIENT: FENG FRANK ACCT: [id number] UNIT: [id number] : 1955 LOC: ER ROOM / BED: / AGE / SEX: 69 / F ADM STATUS: REG ER SERVICE 0933 ORDERING PHYSICIAN: LIDYA RIBERA MD PROCEDURE(s): CXRP - CHEST PORTABLE REASON: chest pain ORDER NUMBER(s): [id number], ACCESSION NUMBER(s): [id number] CHEST RADIOGRAPH Indication: chest pain Technique: Single frontal view of the chest was obtained COMPARISON: None FINDINGS: Lines and Tubes: None Lungs: Clear Pleura: Small left pleural effusion. No pneumothorax. Cardiomediastinal contours: Unremarkable Bones: Unremarkable IMPRESSION: No acute disease. ATED BY: RAINER QUILES MD DICTATED DATE/TIME: 10/13/24952 SIGNED BY: RAINER QUILES MD SIGNED DATE/TIME: 10/13/24952 CC: [place] [id number] Ph: [phone] DIAGNOSTIC IMAGING Diagnostic Imaging Report : [id number] Signed PATIENT: FENG FRANK ACCT: [id number] UNIT: [id number] : 1955 LOC: [facility] ROOM / BED: 0240T / A AGE / SEX: 69 / F ADM STATUS: ADM IN SERVICE 0600 ORDERING PHYSICIAN: DOUG FERGUSON MD PROCEDURE(s): CXRP - CHEST PORTABLE REASON: FU ORDER NUMBER(s): [id number], ACCESSION NUMBER(s): [id number] CHEST RADIOGRAPH Indication: FU Technique: Single frontal view of the chest was obtained Comparison: XY CHEST PORTABLE on DOS: 10/13/24 IMPRESSION: Cardiomediastinal silhouette is enlarged. Obscuration of the left hemidiaphragm May relate to effusion, atelectasis and/or consolidation. [id number] pulmonary vascular congestion. Patchy airspace opacity in the right lower lung. ATED BY: LALY MATT MD DICTATED DATE/TIME: 10/15/24525 SIGNED BY: LALY MATT MD SIGNED DATE/TIME: 10/15/24525 CC: Condition at Discharge: Fair Final Diagnosis/Problems List Pericarditis with moderate pericardial effusion Acute complicated UTI AILYN likely hemodynamically mediated/VMN on CKD 4 Small bilateral pleural effusions Asymptomatic Severe Mitral regurgitation (LVEF 55%) Atrial tachycardia symptomatic by palpitation Type 2 diabetes - (Hb A1c 5.9 on 09/29/2024) Diabetic Peripheral neuropathy Degenerative disc disease Osteoarthritis History of gout h/o nephrolithiasis h/o cholecystectomy h/o hysterectomy Discharge Disposition: Home SNF Discharge Will this Physician continue t: No Discharge Instruct/Medications Diet: Consistent carbohydrate Activity: No Restrictions, As Tolerated Follow Up/Referral: follow up with cardiology ( dr mcmanus) follow up with pcp within 1 to 2 weeks. Medications: script to pharmacy Discharge Statement: "Patient was advised to return to the ER or call 911 if any headaches, dizziness, shortness of breath, chest pain, abdominal pain, bleeding, fevers, or worsening of medical condition. Patient was counseled about treatment plan, medications, possible side effects, patientverbalized understanding. All questions were answered to the best of my ability. This discharge took greater then 30 minutes in planning, reviewing documentation, counseling the patient, and discussing with other team members." ASSESSMENT ASSESSMENT Assessment pericardial effusion TONIA BRONSON RESIDENT Oct 16, 2024 14:21
[2024-10-16 14:48] VITALS: BP 141/84; PULSE 83; RESP 18; TEMP 98.5; O2SAT 90
--- NOTE | 2024-10-16 14:57 | DVHPN2 ---
Progress Note - Dictate Date Seen: Oct 16, 2024 Medical Necessity Reason Pt with a Central, PICC or Fol: No Subjective Patient is feeling stable she denies any major complaints at this time. vital signs Vital Sign Date Time Temp Pulse Resp B/P (MAP) Pulse Ox O2 Delivery O2 Flow Rate FiO2 10/16/24 14:48 98.5 83 18 90 10/16/24 13:00 141/84 (103) 10/16/24 08:00 Room Air* 0 21 Total Intake and Output 10/15/24 10/15/24 10/16/24 15:00 23:00 07:00 Intake Total 250 ml 700 ml 350 ml Balance 250 ml 700 ml 350 ml medications Current Medications Medications Dose Ordered Sig/Coy Route Start Time Stop Time Status Last Admin Dose Admin Gabapentin 400 mg BID PO 10/13/24 22:00 10/16/24 08:56 400 MG Diagnostic Test (Pha) 1 strip ACHS 10/13/24 22:00 10/16/24 11:40 1 STRIP Insulin Human Regular HS SC 10/13/24 22:00 10/15/24 23:04 6 UNITS Insulin Human Regular AC SC 10/14/24 07:00 10/16/24 11:41 6 UNITS Dextrose 50 ml UD PRN IV 10/13/24 20:30 Sodium Chloride 10 ml Q8HR IV 10/13/24 22:00 10/16/24 06:21 10 ML Acetaminophen/ Hydrocodone Bitart 1 tab Q4HP PRN PO 10/13/24 20:30 10/15/24 22:54 1 TAB Acetaminophen 650 mg Q6HP PRN PO 10/13/24 20:30 10/15/24 16:56 650 MG Ceftriaxone Sodium 50 ml @ 100 mls/hr Q24H IV 10/15/24 04:00 10/16/24 04:09 100 MLS/HR Phenazopyridine HCl 200 mg BID PO 10/14/24 22:00 10/16/24 08:56 200 MG Azithromycin 250 ml @ 125 mls/hr DAILY IV 10/15/24 10:00 10/16/24 08:56 125 MLS/HR Colchicine 0.6 mg Q12HR PO 10/15/24 10:00 10/16/24 08:56 0.6 MG Pantoprazole Sodium 40 mg BID IV 10/15/24 10:00 10/16/24 08:55 40 MG Prednisone 40 mg DAILY PO 10/16/24 10:00 10/16/24 08:56 40 MG objective HEENT: No evidence of JVD, no oral ulcers. Pulmonary: Lungs are clear on auscultation bilaterally Cardiovascular S1-S2, no S3 or S4 Abdomen: Bowel sounds positive, soft no rebound tenderness Skin: No rash Neurological: Alert, oriented, no focal weakness laboratory and microbiology Laboratory Tests 10/16/24 08:06 Test 10/16/24 08:06 Range/Units Serum Glucose 174 H 74-106 mg/dL Assessment/Plan Assessment AILYN, prerenal Chest pain , r/o ACS. Serial troponin negative CKD III DM h/o nephrolithiasis cholecystectomy hysterectomy arthritis Plan: gfr stable. Patient has been Chronic kidney disease for years in [place] 2014 and stable Renal US does not show hydronephrosis Cardiology consult Daily BMP Strict I&Os Follow up as an outpatient with her distribution lead Dr. Moreno Plan discussed with: Patient ELOISA MORRIS MD Oct 16, 2024 14:57
[2024-10-16] MEDS ORDERED: PRED20TA2 PO (15:30)
[2024-10-16] MEDS ORDERED: SULF400T11 PO (15:30)
[2024-10-16] MEDS ORDERED: COLC1CAP PO ×2 (15:36)
[2024-10-16 17:07] VITALS: BP 112/70; PULSE 80; RESP 19; TEMP 98.6; O2SAT 91
== END 2024-10-16 18:08 | disposition home or self-care (01) | DRG 314 ==
LOC: ER 09:17 → EDBD 09:17 → OVERFLOW 21:01 → TELE-EAST 21:02
PROVIDERS: ADMIT Student in an Organized Health Care Education/Training Program; ATTEND Student in an Organized Health Care Education/Training Program
DX: I31.9 Disease of pericardium, unspecified (principal); N17.0 Acute kidney failure with tubular necrosis; I47.19 Other supraventricular tachycardia; N39.0 Urinary tract infection, site not specified; J90 Pleural effusion, not elsewhere classified; N17.9 Acute kidney failure, unspecified; Z68.41 Body mass index [BMI] 40.0-44.9, adult; I31.39 Other pericardial effusion (noninflammatory); N18.30 Chronic kidney disease, stage 3 unspecified; E11.22 Type 2 diabetes mellitus with diabetic chronic kidney disease; E11.65 Type 2 diabetes mellitus with hyperglycemia; E66.01 Morbid (severe) obesity due to excess calories; E11.42 Type 2 diabetes mellitus with diabetic polyneuropathy; M19.09 Primary osteoarthritis, other specified site; M10.9 Gout, unspecified; I48.91 Unspecified atrial fibrillation; Z83.3 Family history of diabetes mellitus; Z98.84 Bariatric surgery status; Z88.3 Allergy status to other anti-infective agents; Z79.02 Long term (current) use of antithrombotics/antiplatelets; Z79.2 Long term (current) use of antibiotics; Z79.891 Long term (current) use of opiate analgesic; Z90.49 Acquired absence of other specified parts of digestive tract; Z90.710 Acquired absence of both cervix and uterus; Z87.442 Personal history of urinary calculi; Z79.899 Other long term (current) drug therapy; Z79.4 Long term (current) use of insulin; Z79.624 Long term (current) use of inhibitors of nucleotide synthesis
CPT/HCPCS: 36415; 71045; 76775; 80048; 80053; 80074; 81001; 82550; 82962; 83880; 84484; 85025; 85652; 86038; 86141; 86703; 87040; 87086; 93005; 93306; 99291; G0378; J1815; J2470